=== PATIENT | male | born 1945 | race African-American/Black ===

== ENCOUNTER 2016-09-09 05:08 | Emergency (ER) | payer MEDICARE ==
[2016-09-09] MEDS ORDERED: LIDOCAINE 1% INJ-PF (10 MG/ML) 30 ML SDV INJ ONE (05:28)
--- NOTE | 2016-09-09 05:32 | ER Document Report ---
ED General - General Chief Complaint: Laceration Stated Complaint: FALL,LACERATION Notes: Patient is a 71-year-old male who is walking and then caught his toe awkwardly in the floor. It caused a split in the skin on the medial aspect of his second toe of his left foot. He denies any other pain or injuries. Has a history of difficulty ambulating. says he walks awkwardly in waves where his toes can easily catch become injured. He does use a walker or cane at home. They' re unsure when his last tetanus shot was. Patient refuses a tetanus shot this time. I did explain to him that tetanus is a serious illness and that the tetanus shot prevented. Patient still refuses to shot. No other complaints at this time. Patient's denies falling all the way to ground. He denies hitting his head. Denies any further injuries. TRAVEL OUTSIDE OF THE [place] IN LAST 30 DAYS: No - Related Data Allergies/Adverse Reactions: No Known Allergies Allergy (Verified 09/09/16 05:10) Past Medical History - Social History Smoking Status: Never Smoker Frequency of alcohol use: None Family History: Reviewed & Not Pertinent - Past Medical History Cardiac Medical History: Reports: Hx Hypercholesterolemia, Hx Hypertension Renal/ Medical History: Reports: Hx Renal Insufficiency Musculoskeltal Medical History: Reports Hx Arthritis - Gout Past Surgical History: Reports: Hx Thyroid Surgery - partial per patient - Immunizations Hx Diphtheria, Pertussis, Tetanus Vaccination: Yes Review of Systems - Review of Systems Notes: My Normal Review Basic REVIEW OF SYSTEMS: CONSTITUTIONAL : Denies fever, chills, or sweats. Denies recent illness. MUSCULOSKELETAL: Left second toe pain SKIN: Denies rash or skin lesions. NEUROLOGICAL: Denies altered mental status or loss of consciousness. Denies headache. Denies weakness or paralysis or loss of use of either side. Denies problems with gait or speech. Denies sensory or motor loss. ALL OTHER SYSTEMS REVIEWED AND NEGATIVE. Physical Exam - Vital signs Vitals: Temp Pulse Resp BP Pulse Ox 97.5 F 83 16 133/68 H 100 09/09/16 05:14 09/09/16 05:14 09/09/16 05:14 09/09/16 05:14 09/09/16 05:14 - Notes Notes: General Appearance: Well nourished, alert, cooperative, no acute distress, no obvious discomfort. Well-appearing. Vitals: reviewed, See vital signs table. Extremities: strength 5/5 in all extremities, good pulses in all extremities, no swelling or tenderness in the extremities, no edema. Patient has slight pain to palpation of left foot. No significant pain to palpation. Patient has 2+ pedal edema in both feet which patient's says is chronic and unchanged. Good capillary refill. Skin: Patient has a laceration to the medial aspect of the left second toe. No evidence of tendinous involvement. Patient is able move his toes. Neuro: speech clear, oriented x 3, normal affect, responds appropriately to questions. Patient has some chronic numbness in his feet and toes which is unchanged according to the . He can feel some touch but not much pain. Course - Vital Signs Vital signs: Temp Pulse Resp BP Pulse Ox 97.5 F 83 16 133/68 H 100 09/09/16 05:14 09/09/16 05:14 09/09/16 05:14 09/09/16 05:14 09/09/16 05:14 - Transfer of Care Notes: 09/09/16 06:17 I did obtain x-ray discussed patient has poor sensation in his feet. His no obvious deformity or swelling in the foot night do not suspect a fracture however being that he does not can sensation in want to obtain x-ray to rule out occult fracture. I did review the x-rays myself. I do not see any evidence of fracture. The patient is safe to be discharged home. I encouraged him to return to ER if he has any redness swelling or signs of infection. Encouraged him to return to ER or the doctor in 7 days for removal of cyst sutures. Patient and agree with plan and he will be discharged home. Dictation of this chart was performed using voice recognition software; therefore, there may be some unintended grammatical errors. Procedures - Laceration/Wound Repair left 2nd toe Wound length (cm): 3 Wound's Depth, Shape: Linear Wound explored: Clean Wound Repaired With: Sutures Suture Size/Type: 6:0, Ethilon Number of Sutures: 5 Post-procedure NV exam normal: No - Chronic numbness in toes unchanged from inital exam Complications: No Discharge - Discharge Clinical Impression: Laceration Condition: Good Disposition: HOME, SELF-CARE Additional Instructions: LACERATION CARE: Your laceration has been sutured to keep the skin edges aligned during healing. The time of suture removal depends on the nature and location of your cut. Please follow the care instructions the doctor has outlined for you and return for further care, according to the schedule you've been given. Keep the wound and dressing clean. Unless you were told otherwise, you may shower daily, blotting the wound dry with a clean, unused towel. At other times, If the dressing gets wet or blood soaked, remove it and blot the wound dry, then reapply a new dressing. Unless you were instructed otherwise, dressings should be changed at least daily. If any signs of infection occur (swelling, redness, drainage, increasing tenderness, red streaks, tender lumps in the armpit or groin above the laceration, or fever), see the doctor immediately. SOAP CLEANSING: Gently wash the wound daily using a mild soap (like Ivory, Phisoderm, Neutrogena). Use warm water, rubbing gently until all debris, ooze, and crusting have been washed from the wound. Allow to dry briefly (about 10 minutes) after cleaning. Repeat this cleansing at least three times a day for the first two days and then once or twice a day. ANTIBIOTIC OINTMENT PROTECTION: Your wounds are such that dressing them is not practical or optional. After cleansing, you should apply a thin coating of antibiotic ointment ( Bacitracin, not Neosporin) to the wounds at least three times daily. This lessens infection risk, and may decrease the amount of scarring. Use a q-tip or dull butter knife, not your finger, to apply this ointment. Any debris or ooze which builds up in the ointment should be gently rubbed off with a sterile gauze pad. Harder crusting may need to be gently scrubbed off with a clean wash cloth with soap and warm water, perhaps applying a warm, wet wash cloth to the wound for ten minutes first. Development of redness, severe itching, or blistering may mean allergy to the ointment. See the doctor. PROPHYLACTIC ANTIBIOTIC: The antibiotics which have been prescribed are designed to decrease the risk of infection. Only certain types of wounds benefit from this -- the typical cut, scrape, or burn DOES NOT require antibiotics. Of course, infection can still occur despite the use of prophylactic antibiotics. Your wound will heal with less chance of an infectious complication if you take the medication as directed. The most important dose is the FIRST dose, so don't delay filling the prescription! FOLLOW-UP CARE: Please return in ___7__ days for an infection check and dressing change. To facilitate a timely removal of your sutures, you may return to the Emergency Department at [facility]. You do not need to call for an appointment, but the best time to come in for suture removal is early in the morning. If you have been referred to another physician for follow-up care, call that physicians office for an appointment as you were instructed. If you experience a significant change in your laceration, or if you are concerned there may be an infection (swelling, redness, drainage, increasing tenderness, red streaks, tender lumps in the armpit or groin above the laceration, or fever) , return to the Emergency Department immediately re-evaluation. Please return to the ER immediately if you have any concerns that there may be some infection in the toe. Prescriptions: Cephalexin Monohydrate [Keflex 500 mg Capsule] 500 mg PO BID #14 capsule
[2016-09-09] MEDS ORDERED: CEPHALEXIN 500 MG CAPSULE PO ONE (06:06)
[2016-09-09 06:26] VITALS: BP 120/71
== END 2016-09-09 06:27 | disposition home or self-care (01) ==
LOC: ER 05:08
PROC: 0HQNXZZ Repair Left Foot Skin, External Approach (ICD-10-PCS; principal; 2016-09-09)
DX: S91.115A Laceration without foreign body of left lesser toe(s) without damage to nail, initial encounter (principal); W22.09XA Striking against other stationary object, initial encounter; Y92.009 Unspecified place in unspecified non-institutional (private) residence as the place of occurrence of the external cause; E78.00 Pure hypercholesterolemia, unspecified; I10 Essential (primary) hypertension; M10.9 Gout, unspecified
CPT/HCPCS: 99282; 73620; 12002; A9270; J3490

== ENCOUNTER → 2016-09-12 | Outpatient (CLI) | payer MEDICARE ==
[2016-09-12 14:21] LABS: HEMATOCRIT 38.8 % (37.9-51.0); HEMOGLOBIN 12.7 g/dL (13.5-17.0); HGB HCT DIFFERENCE -0.7; MEAN CORPUSCULAR HGB CONC 32.7 g/dL (32.0-36.0); MEAN CORPUSCULAR VOLUME 86 fl (80-97); RED BLOOD COUNT 4.54 10^6/uL (4.35-5.55); RED CELL DISTRIBUTION WIDTH 14.4 % (11.5-14.0); WHITE BLOOD COUNT 8.6 10^3/uL (4.0-10.5)
[2016-09-12 14:22] LABS: APPEARANCE,URINE CLEAR; BILIRUBIN,URINE NEGATIVE (NEGATIVE); GLUCOSE, URINE NEGATIVE (NEGATIVE); KETONES,URINE NEGATIVE (NEGATIVE); LEUKOCYTE ESTERASE,URINE NEGATIVE (NEGATIVE); NITRITE,URINE NEGATIVE (NEGATIVE); PROTEIN,URINE NEGATIVE (NEGATIVE); URINE SPECIFIC GRAVITY 1.008; UROBILINOGEN,URINE NEGATIVE mg/dL (<2.0)
[2016-09-12 14:40] LABS: ANION GAP 17 (5-19); BLOOD UREA NITROGEN 27 mg/dL (7-20); CALCIUM 9.4 mg/dL (8.4-10.2); CARBON DIOXIDE 18 mmol/L (22-30); CHLORIDE 112 mmol/L (98-107); CREATININE RESULT 2.27 mg/dL (0.52-1.25); GLUCOSE 205 mg/dL (75-110); SODIUM 146.5 mmol/L (137-145)
== END ==
LOC: OD 12:38
PROVIDERS: ATTEND Internal Medicine Nephrology
DX: I12.9 Hypertensive chronic kidney disease with stage 1 through stage 4 chronic kidney disease, or unspecified chronic kidney disease (principal); N18.4 Chronic kidney disease, stage 4 (severe); R31.9 Hematuria, unspecified
CPT/HCPCS: 36415; 80048; 81001; 85027

== ENCOUNTER → 2016-10-07 | Outpatient (CLI) | payer MEDICARE ==
[2016-10-07 14:02] LABS: GLUCOSE,FASTING 90 mg/dL (<110)
== END ==
LOC: OD 12:21
PROVIDERS: ATTEND Internal Medicine Geriatric Medicine
DX: R73.09 Other abnormal glucose (principal)
CPT/HCPCS: 36415; 82951

== ENCOUNTER → 2018-03-31 | Outpatient (CLI) | payer MEDICARE ==
--- NOTE | 2018-03-31 10:05 | RADIOLOGY REPORT (SQ) ---
EXAM DESCRIPTION: U/S ABDOMEN LIMITED W/O DOP COMPLETED DATE/TIME: 03/31/2018 9:36 am REASON FOR STUDY: ABN LFT (R94.5) R94.5 ABNORMAL RESULTS OF LIVER FUNCTION STUDIES COMPARISON: None. TECHNIQUE: Dynamic and static grayscale images acquired of the abdomen and recorded on PACS. Additio nal selected color Doppler and spectral images recorded. LIMITATIONS: Study is limited due to overlying bowel gas FINDINGS: PANCREAS: The pancreas was not well visualized due to overlying bowel gas. The visualized portions of the pancreatic head and body demonstrated no pancreatic mass. No dilatation of the panc reatic duct was identified. LIVER: No masses. Echotexture normal. LIVER VASCULATURE: Normal directional flow of the main portal vein. GALLBLADDER: No stones. Normal wall thickness. No pericholecystic fluid. ULTRASOUND-DETECTED BRODY'S SIGN: Negative. INTRAHEPATIC DUCTS AND COMMON DUCT: CBD and intrahepatic ducts normal caliber. No filling defects. INFERIOR VENA CAVA: Normal flow. AORTA: No aneurysm. RIGHT KIDNEY: 8.3 cm in length. Normal echogenicity. No solid or suspicious masses. No hydronephrosi s. No calcifications. PERITONEAL AND RIGHT PLEURAL SPACE: No ascites or effusions. OTHER: No other significant findings. IMPRESSION: Limited study as noted above. No significant intra-abdominal abnormalities were identif ied TECHNICAL DOCUMENTATION: JOB ID: [id number] [employer]- All Rights Reserved Reading location - IP/workstation name: [email or web address]
== END ==
LOC: RAD 08:32
PROVIDERS: ATTEND Family Medicine
DX: R94.5 Abnormal results of liver function studies (principal)
CPT/HCPCS: 76705

== ENCOUNTER → 2018-05-21 | Outpatient (CLI) | payer MEDICARE ==
[2018-05-21 09:52] LABS: ANION GAP 8 (5-19); BLOOD UREA NITROGEN 27 mg/dL (7-20); CALCIUM 9.1 mg/dL (8.4-10.2); CARBON DIOXIDE 19 mmol/L (22-30); CHLORIDE 118 mmol/L (98-107); GLUCOSE 98 mg/dL (75-110); POTASSIUM 4.5 mmol/L (3.6-5.0); SODIUM 145.3 mmol/L (137-145)
== END ==
LOC: OD 08:59
PROVIDERS: ATTEND Internal Medicine Nephrology
DX: E11.22 Type 2 diabetes mellitus with diabetic chronic kidney disease (principal); N18.4 Chronic kidney disease, stage 4 (severe); E87.1 Hypo-osmolality and hyponatremia; M10.00 Idiopathic gout, unspecified site
CPT/HCPCS: 36415; 80048

== ENCOUNTER → 2018-07-14 | Outpatient (CLI) | payer MEDICARE ==
[2018-07-14 09:58] LABS: APPEARANCE,URINE CLEAR; BILIRUBIN,URINE NEGATIVE (NEGATIVE); COLOR,URINE STRAW; GLUCOSE, URINE NEGATIVE (NEGATIVE); KETONES,URINE NEGATIVE (NEGATIVE); LEUKOCYTE ESTERASE,URINE NEGATIVE (NEGATIVE); NITRITE,URINE NEGATIVE (NEGATIVE); PROTEIN,URINE NEGATIVE (NEGATIVE); URINE SPECIFIC GRAVITY 1.005; UROBILINOGEN,URINE NEGATIVE mg/dL (<2.0)
[2018-07-14 10:03] LABS: HEMATOCRIT 43.2 % (37.9-51.0); HEMOGLOBIN 14.2 g/dL (13.5-17.0); MEAN CORPUSCULAR HGB CONC 32.9 g/dL (32.0-36.0); MEAN CORPUSCULAR VOLUME 88 fl (80-97); PLATELET COUNT 236 10^3/uL (150-450); RED CELL DISTRIBUTION WIDTH 14.1 % (11.5-14.0); WHITE BLOOD COUNT 9.4 10^3/uL (4.0-10.5)
[2018-07-14 10:25] LABS: ANION GAP 14 (5-19); BLOOD UREA NITROGEN 30 mg/dL (7-20); CALCIUM 9.7 mg/dL (8.4-10.2); CARBON DIOXIDE 21 mmol/L (22-30); CHLORIDE 112 mmol/L (98-107); GLUCOSE 95 mg/dL (75-110); POTASSIUM 4.7 mmol/L (3.6-5.0); SODIUM 147.4 mmol/L (137-145)
== END ==
LOC: OD 09:16
PROVIDERS: ATTEND Internal Medicine Nephrology
DX: N18.3 Chronic kidney disease, stage 3 (moderate) (principal); I12.9 Hypertensive chronic kidney disease with stage 1 through stage 4 chronic kidney disease, or unspecified chronic kidney disease; M10.00 Idiopathic gout, unspecified site
CPT/HCPCS: 36415; 80048; 81001; 85027

== ENCOUNTER → 2018-11-12 | Outpatient (CLI) | payer MEDICARE ==
[2018-11-12 08:53] LABS: HEMOGLOBIN 12.8 g/dL (13.5-17.0); MEAN CORPUSCULAR HGB CONC 33.6 g/dL (32.0-36.0); MEAN CORPUSCULAR VOLUME 89 fl (80-97); PLATELET COUNT 238 10^3/uL (150-450); RED BLOOD COUNT 4.25 10^6/uL (4.35-5.55); RED CELL DISTRIBUTION WIDTH 14.3 % (11.5-14.0); WHITE BLOOD COUNT 10.3 10^3/uL (4.0-10.5)
[2018-11-12 08:55] LABS: APPEARANCE,URINE CLEAR; BILIRUBIN,URINE NEGATIVE (NEGATIVE); COLOR,URINE STRAW; GLUCOSE, URINE NEGATIVE (NEGATIVE); KETONES,URINE NEGATIVE (NEGATIVE); LEUKOCYTE ESTERASE,URINE NEGATIVE (NEGATIVE); NITRITE,URINE NEGATIVE (NEGATIVE); PROTEIN,URINE NEGATIVE (NEGATIVE); URINE SPECIFIC GRAVITY 1.004; UROBILINOGEN,URINE NEGATIVE mg/dL (<2.0)
[2018-11-12 09:36] LABS: ANION GAP 12 (5-19); BLOOD UREA NITROGEN 29 mg/dL (7-20); CALCIUM 9.5 mg/dL (8.4-10.2); CARBON DIOXIDE 20 mmol/L (22-30); CHLORIDE 112 mmol/L (98-107); GLUCOSE 122 mg/dL (75-110); PHOSPHORUS 4.2 mg/dL (2.5-4.5); POTASSIUM 4.3 mmol/L (3.6-5.0); SODIUM 144.1 mmol/L (137-145)
== END ==
LOC: OD 08:25
PROVIDERS: ATTEND Internal Medicine Nephrology
DX: I12.9 Hypertensive chronic kidney disease with stage 1 through stage 4 chronic kidney disease, or unspecified chronic kidney disease (principal); N18.3 Chronic kidney disease, stage 3 (moderate)
CPT/HCPCS: 36415; 80048; 81001; 83970; 84100; 85027

== ENCOUNTER → 2019-02-18 | Outpatient (CLI) | payer MEDICARE ==
[2019-02-18 08:04] LABS: HEMATOCRIT 36.1 % (37.9-51.0); HEMOGLOBIN 11.9 g/dL (13.5-17.0); MEAN CORPUSCULAR HEMOGLOBIN 29.1 pg (27.0-33.4); MEAN CORPUSCULAR HGB CONC 33.1 g/dL (32.0-36.0); MEAN CORPUSCULAR VOLUME 88 fl (80-97); PLATELET COUNT 242 10^3/uL (150-450); RED BLOOD COUNT 4.11 10^6/uL (4.35-5.55); RED CELL DISTRIBUTION WIDTH 14.1 % (11.5-14.0); WHITE BLOOD COUNT 9.9 10^3/uL (4.0-10.5)
[2019-02-18 08:06] LABS: APPEARANCE,URINE CLEAR; BILIRUBIN,URINE NEGATIVE (NEGATIVE); COLOR,URINE STRAW; GLUCOSE, URINE NEGATIVE (NEGATIVE); KETONES,URINE NEGATIVE (NEGATIVE); LEUKOCYTE ESTERASE,URINE NEGATIVE (NEGATIVE); NITRITE,URINE NEGATIVE (NEGATIVE); PROTEIN,URINE NEGATIVE (NEGATIVE); URINE SPECIFIC GRAVITY 1.003; UROBILINOGEN,URINE NEGATIVE mg/dL (<2.0)
[2019-02-18 08:30] LABS: ANION GAP 10 (5-19); BLOOD UREA NITROGEN 29 mg/dL (7-20); CALCIUM 9.5 mg/dL (8.4-10.2); CARBON DIOXIDE 22 mmol/L (22-30); CHLORIDE 111 mmol/L (98-107); GLUCOSE 120 mg/dL (75-110); PHOSPHORUS 4.4 mg/dL (2.5-4.5); POTASSIUM 4.5 mmol/L (3.6-5.0); SODIUM 142.7 mmol/L (137-145)
== END ==
LOC: OD 07:33
PROVIDERS: ATTEND Physician Assistant Medical
DX: I12.9 Hypertensive chronic kidney disease with stage 1 through stage 4 chronic kidney disease, or unspecified chronic kidney disease (principal); N18.3 Chronic kidney disease, stage 3 (moderate); E87.0 Hyperosmolality and hypernatremia; E87.2 Acidosis
CPT/HCPCS: 36415; 80048; 81001; 83970; 84100; 85027

== ENCOUNTER → 2019-05-24 | Outpatient (CLI) | payer MEDICARE ==
[2019-05-24 08:23] LABS: APPEARANCE,URINE CLEAR; BILIRUBIN,URINE NEGATIVE (NEGATIVE); COLOR,URINE STRAW; GLUCOSE, URINE >=500 mg/dL (NEGATIVE); KETONES,URINE NEGATIVE (NEGATIVE); LEUKOCYTE ESTERASE,URINE NEGATIVE (NEGATIVE); NITRITE,URINE NEGATIVE (NEGATIVE); PROTEIN,URINE NEGATIVE (NEGATIVE); URINE SPECIFIC GRAVITY 1.005; UROBILINOGEN,URINE NEGATIVE mg/dL (<2.0)
[2019-05-24 08:23] LABS: HEMATOCRIT 37.2 % (37.9-51.0); HEMOGLOBIN 12.4 g/dL (13.5-17.0); MEAN CORPUSCULAR HEMOGLOBIN 28.7 pg (27.0-33.4); MEAN CORPUSCULAR HGB CONC 33.4 g/dL (32.0-36.0); MEAN CORPUSCULAR VOLUME 86 fl (80-97); PLATELET COUNT 201 10^3/uL (150-450); RED BLOOD COUNT 4.33 10^6/uL (4.35-5.55); RED CELL DISTRIBUTION WIDTH 13.6 % (11.5-14.0); WHITE BLOOD COUNT 8.1 10^3/uL (4.0-10.5)
[2019-05-24 08:43] LABS: ANION GAP 12 (5-19); BLOOD UREA NITROGEN 27 mg/dL (7-20); CALCIUM 9.5 mg/dL (8.4-10.2); CARBON DIOXIDE 22 mmol/L (22-30); CHLORIDE 106 mmol/L (98-107); GLUCOSE 338 mg/dL (75-110); PHOSPHORUS 3.7 mg/dL (2.5-4.5); POTASSIUM 4.1 mmol/L (3.6-5.0)
[2019-05-24 08:46] LABS: ABSOLUTE LYMPHOCYTES# (MANUAL) 4.7 10^3/uL (0.5-4.7); ABSOLUTE MONOCYTES # (MANUAL) 0.3 10^3/uL (0.1-1.4); BASOPHILS % (MANUAL) 0 % (0-2); EOSINOPHILS % (MANUAL) 3 % (0-6); LYMPHOCYTES % (MANUAL) 58 % (13-45); MONOCYTES % (MANUAL) 4 % (3-13); SEGMENTED NEUTROPHILS % (MAN) 35 % (42-78); TOTAL CELLS COUNTED 100
[2019-05-24 08:48] LABS: PLATELET COMMENT ADEQUATE; RBC MORPHOLOGY COMMENT NORMO-CYTIC/CHROMIC
== END ==
LOC: OD 07:36
PROVIDERS: ATTEND Physician Assistant Medical
DX: I12.9 Hypertensive chronic kidney disease with stage 1 through stage 4 chronic kidney disease, or unspecified chronic kidney disease (principal); N18.3 Chronic kidney disease, stage 3 (moderate); R60.9 Edema, unspecified; M10.00 Idiopathic gout, unspecified site
CPT/HCPCS: 36415; 80048; 81001; 83970; 84100; 85025

== ENCOUNTER 2019-07-04 00:29 | Inpatient (IN) | payer MEDICARE ==
[2019-07-04 00:52] LABS: HEMATOCRIT 38.3 % (37.9-51.0); HEMOGLOBIN 12.3 g/dL (13.5-17.0); MEAN CORPUSCULAR HEMOGLOBIN 28.7 pg (27.0-33.4); MEAN CORPUSCULAR HGB CONC 32.1 g/dL (32.0-36.0); MEAN CORPUSCULAR VOLUME 90 fl (80-97); PLATELET COUNT 207 10^3/uL (150-450); RED BLOOD COUNT 4.28 10^6/uL (4.35-5.55); RED CELL DISTRIBUTION WIDTH 13.6 % (11.5-14.0); WHITE BLOOD COUNT 11.1 10^3/uL (4.0-10.5)
[2019-07-04 01:08] LABS: ALBUMIN 3.8 g/dL (3.5-5.0); ALKALINE PHOSPHATASE 122 U/L (38-126); ANION GAP 19 (5-19); ASPARTATE AMINO TRANSFERASE 62 U/L (17-59); BILIRUBIN,DIRECT 0.1 mg/dL (0.0-0.4); BILIRUBIN,TOTAL 0.3 mg/dL (0.2-1.3); BLOOD UREA NITROGEN 24 mg/dL (7-20); CALCIUM 8.8 mg/dL (8.4-10.2); CARBON DIOXIDE 17 mmol/L (22-30); CHLORIDE 104 mmol/L (98-107); POTASSIUM 4.1 mmol/L (3.6-5.0); TOTAL PROTEIN 7.4 g/dL (6.3-8.2)
[2019-07-04 01:14] LABS: ABSOLUTE MONOCYTES # (MANUAL) 0.2 10^3/uL (0.1-1.4); BAND NEUTROPHILS % (MANUAL) 4 % (3-5); BASOPHILS % (MANUAL) 0 % (0-2); EOSINOPHILS % (MANUAL) 2 % (0-6); LYMPHOCYTES % (MANUAL) 54 % (13-45); MONOCYTES % (MANUAL) 2 % (3-13); SEGMENTED NEUTROPHILS % (MAN) 38 % (42-78); TOTAL CELLS COUNTED 100
[2019-07-04 01:15] LABS: PLATELET COMMENT ADEQUATE
--- NOTE | 2019-07-04 01:15 | ER Document Report ---
ED General - General Chief Complaint: Altered Mental Status Stated Complaint: POSSIBLE SEIZURE Time Seen by Provider: 07/04/19 01:10 EDT Notes: Mr. Kumar is a 73-year-old male with PMH of hyperlipidemia, gout, hypothyroidism and CKD BIBA for seizure. Patient's states that he drinks approximately 2 gallons of water daily and is therefore chronically urinating. They have a bedside commode in the room. Throughout the day yesterday, the patient was noted to have right hand and arm tremor. However during these episodes, the patient was awake alert and able to converse. This evening, the patient attempted to get up out of bed to urinate. He started by having the right hand tremor was then able to steady his balance or hold onto the bed or dresser, then the tremor seemed to progress throughout his entire body. The states he then fell to the ground and was unconscious for a brief period of time. She is unsure whether the urinary incontinence occurred prior to the patient losing consciousness and having generalized tonic-clonic like movements or after as he had gotten up to use the restroom. No tongue laceration. Upon EMS arrival, the patient's glucose was noted to be significantly elevated greater than 500. He was noted to have another secondary seizure in route. EMS gave 2.5 mg of Versed. On arrival, the patient was quite lethargic, likely related to Versed administration. Nursing staff stated that the patient's speech was quite slurred and was unable to partake in most of the NIH stroke scale. endorses patient having a chronic nonproductive cough. No previous fever or chills, ill contacts or recent travel. No nausea, vomiting or diarrhea. adds that the patient is normally alert and oriented x4. TRAVEL OUTSIDE OF THE [place] IN LAST 30 DAYS: No - Related Data Allergies/Adverse Reactions: No Known Allergies Allergy (Verified 09/09/16 05:10) Past Medical History - Social History Smoking Status: Former Smoker Family History: Reviewed & Not Pertinent Patient has suicidal ideation: No Patient has homicidal ideation: No - Past Medical History Cardiac Medical History: Reports: Hx Hypercholesterolemia, Hx Hypertension Renal/ Medical History: Reports: Hx Renal Insufficiency Musculoskeletal Medical History: Reports Hx Arthritis - Gout Past Surgical History: Reports: Hx Thyroid Surgery - partial per patient - Immunizations Hx Diphtheria, Pertussis, Tetanus Vaccination: Yes Review of Systems - Review of Systems Constitutional: See HPI EENT: No symptoms reported Cardiovascular: No symptoms reported Respiratory: See HPI Gastrointestinal: No symptoms reported Genitourinary: No symptoms reported Male Genitourinary: No symptoms reported Musculoskeletal: No symptoms reported Skin: No symptoms reported Hematologic/Lymphatic: No symptoms reported Neurological/Psychological: See HPI, Seizure, Speech impairment, Tremor Physical Exam - Vital signs Vitals: Temp Resp Pulse Ox 98.2 F 28 H 96 07/04/19 00:37 07/04/19 00:37 07/04/19 00:37 Interpretation: Normal - General General appearance: Appears well, Alert - HEENT Head: Normocephalic, Atraumatic Eyes: Normal Pupils: PERRL Mouth/Lips: Normal. No: Laceration - Respiratory Respiratory status: No respiratory distress Chest status: Nontender Breath sounds: Normal Chest palpation: Normal - Cardiovascular Rhythm: Regular Heart sounds: Normal auscultation Murmur: No - Abdominal Inspection: Normal Distension: No distension Bowel sounds: Normal Tenderness: Nontender Organomegaly: No organomegaly - Back Back: Normal, Nontender - Extremities General upper extremity: Normal inspection, Nontender, Normal color, Normal ROM, Normal temperature General lower extremity: Normal inspection, Nontender, Normal color, Normal ROM, Normal temperature, Normal weight bearing. No: Aleksandra's sign - Neurological Neuro grossly intact: Yes Cognition: Normal, Short term memory loss Orientation: Disoriented to time, Disoriented to events - Patient oriented to person and place. Unable to tell me the month, year or who the studio operations engineer in charge is. Kianna Coma Scale Eye Opening: Spontaneous [place] Coma Scale Verbal: Oriented Kianna Coma Scale Motor: Obeys Commands Kianna Coma Scale Total: 15 Speech: Normal Cranial nerves: Normal Cerebellar coordination: Other - Limited exam secondary to patient's chronic weakness. 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 NIH is 1 at this point in time. Some decrease in ability to lift bilateral lower extremities however likely related to chronic deconditioning more so rather than weakness as the patient is able to lift each leg off the bed. - Psychological Associated symptoms: Normal affect, Normal mood - Skin Skin Temperature: Warm Skin Moisture: Dry Skin Color: Normal Course - Re-evaluation Re-evalutation: Patient is chronically ill-appearing but nontoxic. Initial vitals notable for tachypnea and tachycardia. On arrival, the patient was slightly confused upon the nursing evaluation, likely secondary to the Versed administration. Differential diagnosis includes intracranial hemorrhage, new onset seizures, infectious process, new onset diabetes, dehydration Given the patient's initial glucose, patient was given 2 L of IV fluids. However the patient's status has improved significantly, nearly back to baseline with some alterations in his inability to articulate time, month or the [place]. However he is able to follow commands and perform the remainder of the NIH stroke scale. CT head is negative for intracranial hemorrhage. There is microvascular changes. CBC notable for leukocytosis without significant left shift. CMP is consistent with patient's known CKD however there is significant hyper glycemia with glucose greater than 600. Patient was given 2 L of fluid. Initial lactic acid is significantly elevated, this could be consistent with the patient having had a recent seizure. It is unclear whether the urination episode occurred prior or after the patient fell to the ground having generalized tonic-clonic motions. No tongue lacerations however on the examination. Patient admitted for further care. Will likely require inpatient MRI as well as close monitoring of his glucose. Likely initiation of anti-glycemic medication such as metformin or insulin. 07/04/19 01:[address] Mathews for admission. Accepted as inpatient to [facility] 07/04/19 01:18 EST Pt is a patient of Dr. Bar. Tax Adjuster called. Dr. Ofe degroot. Accepted patient to [facility]. I do feel that the patient is stable for the [facility] as he has been hemodynamically stable vitals with improved after 2 L of fluid as well as Accu-Chek. Patient's mentation is also improved significantly. - Vital Signs Vital signs: Temp Pulse Resp BP Pulse Ox 97.8 F 118 H 18 125/75 99 07/04/19 00:45 07/04/19 00:50 07/04/19 02:01 07/04/19 02:01 07/04/19 02:01 - Laboratory Result Diagrams: 07/04/19 00:37 07/04/19 00:37 Laboratory results interpreted by me: 07/04/19 07/04/19 07/04/19 00:37 00:37 00:37 WBC 11.1 H RBC 4.28 L Hgb 12.3 L Seg Neuts % (Manual) 38 L Lymphocytes % (Manual) 54 H Monocytes % (Manual) 2 L Abs Lymphs (Manual) 6.0 H Carbon Dioxide 17 L BUN 24 H Creatinine 2.83 H Est GFR ( Amer) 27 L Est GFR (MDRD) Non-Af 22 L Glucose 618 H* Lactic Acid 8.8 H AST 62 H Creatine Kinase 07/04/19 00:37 WBC RBC Hgb Seg Neuts % (Manual) Lymphocytes % (Manual) Monocytes % (Manual) Abs Lymphs (Manual) Carbon Dioxide BUN Creatinine Est GFR ( Amer) Est GFR (MDRD) Non-Af Glucose Lactic Acid AST Creatine Kinase 268 H Critical Care Note - Critical Care Note Total time excluding time spent on procedures (mins): 40 Discharge - Discharge Clinical Impression: Tremor of right hand, Seizure-like activity, New onset type 2 diabetes mellitus, Lactic acidosis, CKD (chronic kidney disease) Condition: Fair Disposition: ADMITTED INPATIENT Admitting Provider: Bar Unit Admitted: [facility]
[2019-07-04 01:19] LABS: VENOUS BLOOD BASE EXCESS -3.4 mmol/L; VENOUS BLOOD HCO3 22.7 mmol/L (20-32); VENOUS BLOOD PCO2 44.8 mmHg (35-63); VENOUS BLOOD PH 7.32 (7.30-7.42)
[2019-07-04 01:21] LABS: APPEARANCE,URINE CLEAR; BILIRUBIN,URINE NEGATIVE (NEGATIVE); COLOR,URINE STRAW; GLUCOSE, URINE >=500 mg/dL (NEGATIVE); KETONES,URINE NEGATIVE (NEGATIVE); LEUKOCYTE ESTERASE,URINE NEGATIVE (NEGATIVE); NITRITE,URINE NEGATIVE (NEGATIVE); PROTEIN,URINE NEGATIVE (NEGATIVE); URINE SPECIFIC GRAVITY 1.009; UROBILINOGEN,URINE NEGATIVE mg/dL (<2.0)
[2019-07-04 01:23] LABS: ADD MANUAL MICROSCOPIC YES
[2019-07-04 01:24] LABS: BACTERIA,URINE TRACE /HPF
[2019-07-04 01:30] LABS: URINE AMPHETAMINES SCREEN NEGATIVE; URINE BARBITURATES SCREEN NEGATIVE; URINE BENZODIAZEPINES SCREEN NEGATIVE; URINE COCAINE SCREEN NEGATIVE; URINE MARIJUANA (THC) SCREEN NEGATIVE; URINE METHADONE SCREEN NEGATIVE; URINE PHENCYCLIDINE SCREEN NEGATIVE
[2019-07-04] MEDS ORDERED: NORMAL SALINE 1000 ML 1,000 ML IV ONE (01:37)
--- NOTE | 2019-07-04 01:39 | RADIOLOGY REPORT (SQ) ---
EXAM: CT head without IV contrast CLINICAL DATA: new onset seizure; altered TECHNICAL DATA: Multiple axial CT images of the brain were performed followed by sagittal and coronal reconstructed images. The CT study is performed according to ALARA (as low as reasonably achievable) or ALARA/IMAGE GENTLY, with automatic adjustment of mA and/or kV according to patient size. Performed on: 07/04/2019 at 12:53 AM Comparisons: None. FINDINGS: There is no evidence of mass, acute mass effect or midline shift. There are no acute extra-axial fluid collections. There is no evidence of acute intracranial hemorrhage. The cerebral sulci and ventricles are prominent consistent with mild cerebral volume loss. There are scattered areas of decreased attenuation within the subcortical and periventricular white matter most likely due to mild chronic microangiopathy. There are incidental bilateral symmetric basal ganglia calcifications. There is mild mucosal thickening of the right sphenoid sinus. The mastoid air cells are clear. The orbital contents are grossly unremarkable. No acute osseous abnormalities are identified. No focal soft tissue abnormalities are identified. IMPRESSION: 1. There is no evidence of acute intracranial pathology. 2. Mild cerebral volume loss with findings consistent with mild chronic microangiopathy.
[2019-07-04 01:40] LABS: GLUCOSE 618 mg/dL (75-110)
[2019-07-04] MEDS ORDERED: NORMAL SALINE 1000 ML 2,000 ML IV ONE (02:28)
--- NOTE | 2019-07-04 02:37 | RADIOLOGY REPORT (SQ) ---
EXAM DESCRIPTION: XR CHEST 1 VIEW COMPLETED DATE/TME: 07/04/2019 01:39 CLINICAL HISTORY: 73 years, Male, seizure, crackles at L base COMPARISON: 08/18/2015 chest NUMBER OF VIEWS: 1 TECHNIQUE: Portable chest LIMITATIONS: None. FINDINGS: The heart size is normal. The lungs are clear. No pneumothorax IMPRESSION: Negative chest copyright 2010 [employer]- All Rights Reserved
[2019-07-04] MEDS ORDERED: INSULIN LISPRO 100 UNIT/ML 3 ML VIAL ONE (04:08)
[2019-07-04] MEDS ORDERED: LORAZEPAM INJ 2 MG/1 ML VIAL IV PRN (04:31)
[2019-07-04] MEDS ORDERED: INSULIN LISPRO 100 UNIT/ML 3 ML VIAL SUBCUT ONE ×2 (04:45→05:45)
[2019-07-04] MEDS ORDERED: INSULIN REG, HUMAN 100 UNIT/ML 3 ML VIAL (PYX) ONE ×2 (06:53→20:50)
[2019-07-04] MEDS ORDERED: DEXTROSE 40% GEL 15 GM TUBE X 2 PO PRN (07:00)
[2019-07-04] MEDS ORDERED: DEXTROSE 40% GEL 15 GM TUBE PO PRN (07:00)
[2019-07-04] MEDS ORDERED: INSULIN, REGULAR 100 UNIT/100 ML NORMAL SALINE IV PRN ×2 (07:00)
[2019-07-04] MEDS ORDERED: GLUCAGON,HUMAN RECOMB 1 MG INJ IM PRN (07:00)
[2019-07-04] MEDS ORDERED: DEXTROSE 50%-WATER SYRINGE 12.5 GM/25 ML DOSE IV PRN (07:00)
[2019-07-04] MEDS ORDERED: DEXTROSE 50%-WATER SYRINGE 25 GM/50 ML DOSE IV PRN (07:00)
[2019-07-04] MEDS: NORMAL SALINE 1000 ML 1,000 ML IV PRN ×2 (11:06→18:57)
[2019-07-04 11:47] LABS: ANION GAP 9 (5-19); BLOOD UREA NITROGEN 20 mg/dL (7-20); CALCIUM 8.3 mg/dL (8.4-10.2); CARBON DIOXIDE 19 mmol/L (22-30); CHLORIDE 118 mmol/L (98-107); GLUCOSE 333 mg/dL (75-110)
[2019-07-04] MEDS ORDERED: OLANZAPINE 5 MG TABLET PO SCH (18:00)
[2019-07-04] MEDS: SODIUM BICARBONATE 650 MG TABLET PO SCH (18:42)
[2019-07-04] MEDS: ATORVASTATIN CALCIUM 20 MG TABLET PO SCH (21:08)
--- NOTE | 2019-07-04 21:32 | PDOC H&P ---
History of Present Illness Admission Date/PCP: 07/04/19 01:40 HIRAM GOMEZ MD History of Present Illness: SHAWN FORD JR is a 73 year old male patient of Dr. Gomez who presented to the ED via EMS transport for reported elevated blood glucose and episode of seizure like activity at home. Patient is a poor historian and limited in participating in his medical history at the time of my evaluation. His at bedside narrated that patient has intermittent episodes of tremor in his right hand and upper limb that occasionally limit his functioning. Spouse reported that on the day of presentation, patient was in the process of transferring from his bed to bedside commode and started experiencing tremor over right side of his body. The tremor subsequently became generalized and patient lost his balance fell to the floor and lost consciousness for brief period of time. Spouse alerted EMS and the EMS personnel found his blood glucose in excess of 500 mg/dL. En route to the ED EMS reported another episode of seizure like activity with need for administration of Versed. There is no reported associated injury with his seizure like activities. Upon arrival in the ED patient was reported lethargic probable due to the Versed administration. Spouse reported that patient in recent time has been drinking lots of water and urinating frequently. She and patient denied any history or diagnosis of diabetes mellitus in self or family members. He denied any associated fever, chills, nausea, vomiting, abdominal pain, diarrhea, or constipation. No dysuria, hematuria, or flank pain. No headache or dizziness. No focal weakness or change in mental function in recent time. His initial evaluation in the ED was remarkable for severe lactic acidosis, hyperglycemia, and chronic kidney disease. He was advised hospitalization for further evaluation and management. His morbidities are as listed below. Past Medical History Cardiac Medical History: Reports: Hyperlipidema, Hypertension Musculoskeltal Medical History: Reports: Arthritis - Gout Psychiatric Medical History: Reports: Depression Social History Smoking Status: Former Smoker Electronic Cigarette use?: No Last Time Smoked: 38 years ago Frequency of Alcohol Use: None Hx Recreational Drug Use: No Drugs: None Hx Prescription Drug Abuse: No - Advance Directive Resuscitation Status: Full Code Family History Family History: Reviewed & Not Pertinent Parental Family History Reviewed: Yes Children Family History Reviewed: Yes Sibling(s) Family History Reviewed.: Yes Medication/Allergy Home Medications: Allopurinol [Zyloprim 100 mg Tablet] 200 mg PO QAM 07/04/19 Aspirin [Adult Low Dose Aspirin EC] 81 mg PO DAILY 07/04/19 Atorvastatin Calcium [Lipitor 20 mg Tablet] 20 mg PO QHS 07/04/19 Furosemide [Lasix 20 mg Tablet] 20 mg PO QAM 07/04/19 Levothyroxine Sodium 50 mcg PO Q6AM 07/04/19 Olanzapine [Zyprexa 5 mg Tablet] 2.5 mg PO QPM 07/04/19 Sodium Bicarbonate [Sodium Bicarbonate 650 mg Tablet] 1,950 mg PO BID 07/04/19 Allergies/Adverse Reactions: No Known Allergies Allergy (Verified 09/09/16 05:10) Review of Systems Constitutional: ABSENT: chills, fever(s), headache(s), weight gain, weight loss Eyes: ABSENT: visual disturbances Ears: ABSENT: hearing changes Nose, Mouth, and Throat: ABSENT: as per HPI, headache(s), mouth pain, sore throat, vertigo, other Cardiovascular: ABSENT: chest pain, dyspnea on exertion, edema, orthropnea, palpitations Respiratory: ABSENT: cough, hemoptysis Gastrointestinal: ABSENT: abdominal pain, constipation, diarrhea, hematemesis, hematochezia, nausea, vomiting Genitourinary: ABSENT: dysuria, hematuria Musculoskeletal: ABSENT: joint swelling Integumentary: ABSENT: rash, wounds Neurological: PRESENT: confusion, tremor(s) Psychiatric: ABSENT: anxiety, depression, homidical ideation, suicidal ideation Endocrine: ABSENT: cold intolerance, heat intolerance, polydipsia, polyuria Hematologic/Lymphatic: ABSENT: easy bleeding, easy bruising, lymphadenopathy Allergic/Immunologic: ABSENT: seasonal rhinorrhea Physical Exam Vital Signs: Temp Pulse Resp BP Pulse Ox 97.7 F 77 16 118/75 99 07/04/19 17:27 07/04/19 17:27 07/04/19 17:27 07/04/19 17:27 07/04/19 17:27 Intake & Output 07/03/19 07/04/19 07/05/19 07:59 06:59 06:59 Intake Total 489 Output Total 600 Balance -111 Weight General appearance: PRESENT: no acute distress, obese Head exam: PRESENT: atraumatic, normocephalic Eye exam: PRESENT: conjunctiva pink, EOMI, PERRLA. ABSENT: scleral icterus Ear exam: PRESENT: normal external ear exam Mouth exam: PRESENT: moist Neck exam: PRESENT: full ROM. ABSENT: carotid bruit, JVD, lymphadenopathy, thyromegaly Respiratory exam: PRESENT: clear to auscultation haroldo Cardiovascular exam: PRESENT: RRR. ABSENT: diastolic murmur, rubs, systolic murmur Vascular exam: ABSENT: pallor GI/Abdominal exam: PRESENT: normal bowel sounds, soft. ABSENT: distended, guarding, mass, organolmegaly, rebound, tenderness Rectal exam: PRESENT: deferred Extremities exam: ABSENT: pedal edema Musculoskeletal exam: PRESENT: normal inspection Neurological exam: PRESENT: alert, awake, oriented to person, oriented to place, oriented to time, oriented to situation, CN II-XII grossly intact. ABSENT: motor sensory deficit Psychiatric exam: PRESENT: appropriate affect, normal mood. ABSENT: homicidal i deation, suicidal ideation Skin exam: PRESENT: dry, warm Results Laboratory Results: 07/04/19 00:37 07/04/19 11:18 07/04/19 07/04/19 07/04/19 00:37 00:37 00:37 WBC 11.1 H RBC 4.28 L Hgb 12.3 L Hct 38.3 MCV 90 MCH 28.7 MCHC 32.1 RDW 13.6 Plt Count 207 Seg Neutrophils % Not Reportable Sodium 140.3 Potassium 4.1 Chloride 104 Carbon Dioxide 17 L Anion Gap 19 BUN 24 H Creatinine 2.83 H Est GFR ( Amer) 27 L Glucose 618 H* Lactic Acid 8.8 H Calcium 8.8 Total Bilirubin 0.3 AST 62 H Alkaline Phosphatase 122 Total Protein 7.4 Albumin 3.8 Urine Color Urine Appearance Urine pH Ur Specific Elliott Urine Protein Urine Glucose (UA) Urine Ketones Urine Blood Urine Nitrite Ur Leukocyte Esterase Ur Squamous Epith Cells 07/04/19 07/04/19 07/04/19 01:45 EST 02:35 11:18 WBC RBC Hgb Hct MCV MCH MCHC RDW Plt Count Seg Neutrophils % Sodium 146.0 H Potassium 4.0 Chloride 118 H Carbon Dioxide 19 L Anion Gap 9 BUN 20 Creatinine 2.51 H Est GFR ( Amer) 31 L Glucose 333 H Lactic Acid 2.1 Calcium 8.3 L Total Bilirubin AST Alkaline Phosphatase Total Protein Albumin Urine Color STRAW Urine Appearance CLEAR Urine pH 7.0 Ur Specific Elliott 1.009 Urine Protein NEGATIVE Urine Glucose (UA) >=500 H Urine Ketones NEGATIVE Urine Blood MODERATE H Urine Nitrite NEGATIVE Ur Leukocyte Esterase NEGATIVE Ur Squamous Epith Cells RARE 07/04/19 00:37 Creatine Kinase 268 H Impressions: Head CT 07/04/19 00:00 IMPRESSION: 1. There is no evidence of acute intracranial pathology. 2. Mild cerebral volume loss with findings consistent with mild chronic microangiopathy. Chest X-Ray 07/04/19 01:39 EST IMPRESSION: Negative chest copyright 2010 [employer]- All Rights Reserved Assessment & Plan - Diagnosis (1) New onset type 2 diabetes mellitus Is this a current diagnosis for this admission?: Yes Plan: See covering admitting attending physician orders for details about care plan. (2) Lactic acidosis Is this a current diagnosis for this admission?: Yes Plan: See covering admitting attending physician orders for details about care plan. (3) Seizure-like activity Is this a current diagnosis for this admission?: Yes Plan: See covering admitting attending physician orders for details about care plan. (4) Tremor of right hand Is this a current diagnosis for this admission?: Yes Plan: See covering admitting attending physician orders for details about care plan. (5) CKD (chronic kidney disease) Qualifiers: Chronic kidney disease stage: stage 3 (moderate) Qualified Code(s): N18.3 - Chronic kidney disease, stage 3 (moderate) Is this a current diagnosis for this admission?: Yes Plan: See covering admitting attending physician orders for details about care plan. (6) HTN (hypertension) Qualifiers: Hypertension type: essential hypertension Qualified Code(s): I10 - Essential (primary) hypertension Is this a current diagnosis for this admission?: Yes Plan: See covering admitting attending physician orders for details about care plan. (7) HLD (hyperlipidemia) Qualifiers: Hyperlipidemia type: unspecified Qualified Code(s): E78.5 - Hyperlipidemia, unspecified Is this a current diagnosis for this admission?: Yes Plan: See covering admitting attending physician orders for details about care plan. (8) Hypothyroidism Qualifiers: Hypothyroidism type: unspecified Qualified Code(s): E03.9 - Hypothyroidism, unspecified Is this a current diagnosis for this admission?: Yes Plan: See covering admitting attending physician orders for details about care plan. (9) Chronic gouty arthritis Is this a current diagnosis for this admission?: Yes Plan: See covering admitting attending physician orders for details about care plan. - Time Time Spent: 50 to 70 Minutes Medications reviewed and adjusted accordingly: Yes Anticipated discharge: Home with Homehealth Within: Other - Inpatient Certification Based on my medical assessment, after consideration of the patient's comorbidities, presenting symptoms, or acuity I expect that the services needed warrant INPATIENT care.: Yes I certify that my determination is in accordance with my understanding of Medicare's requirements for reasonable and necessary INPATIENT services [42 CFR 412.3e].: Yes Medical Necessity: Significant Comorbidiites Make Outpatient Treatment Too Risky, Need Close Monitoring Due to Risk of Patient Decompensation, Need For IV Fluids, Need For Continuous Telemetry Monitoring, Risk of Complication if Not Cared For in Hospital, Risk of Diagnosis Which Will Require Inpatient Eval/Care/Monitoring Post Hospital Care: D/C Weed Cutter Documentation - Plan Summary Plan Summary: See covering admitting attending physician orders for details about care plan.
[2019-07-05] MEDS: NORMAL SALINE 1000 ML 1,000 ML IV PRN ×2 (02:31→15:47)
[2019-07-05] MEDS ORDERED: DEXTROSE 50%-WATER SYRINGE 25 GM/50 ML DOSE IV PRN (03:30)
[2019-07-05] MEDS ORDERED: DEXTROSE 50%-WATER SYRINGE 12.5 GM/25 ML DOSE IV PRN (03:30)
[2019-07-05] MEDS ORDERED: DEXTROSE 40% GEL 15 GM TUBE PO PRN (03:30)
[2019-07-05] MEDS ORDERED: GLUCAGON,HUMAN RECOMB 1 MG INJ IM PRN (03:30)
[2019-07-05] MEDS ORDERED: DEXTROSE 40% GEL 15 GM TUBE X 2 PO PRN (03:30)
[2019-07-05 04:57] LABS: ALKALINE PHOSPHATASE 95 U/L (38-126); ANION GAP 9 (5-19); ASPARTATE AMINO TRANSFERASE 52 U/L (17-59); BILIRUBIN,DIRECT 0.2 mg/dL (0.0-0.4); BILIRUBIN,TOTAL 0.5 mg/dL (0.2-1.3); BLOOD UREA NITROGEN 16 mg/dL (7-20); CALCIUM 8.4 mg/dL (8.4-10.2); CARBON DIOXIDE 19 mmol/L (22-30); CHLORIDE 121 mmol/L (98-107); GLUCOSE 161 mg/dL (75-110); POTASSIUM 3.6 mmol/L (3.6-5.0); TOTAL PROTEIN 6.5 g/dL (6.3-8.2)
[2019-07-05 05:12] LABS: HEMATOCRIT 33.9 % (37.9-51.0); HEMOGLOBIN 11.1 g/dL (13.5-17.0); MEAN CORPUSCULAR HEMOGLOBIN 28.6 pg (27.0-33.4); MEAN CORPUSCULAR HGB CONC 32.8 g/dL (32.0-36.0); MEAN CORPUSCULAR VOLUME 87 fl (80-97); PLATELET COUNT 185 10^3/uL (150-450); RED BLOOD COUNT 3.88 10^6/uL (4.35-5.55); RED CELL DISTRIBUTION WIDTH 13.7 % (11.5-14.0); WHITE BLOOD COUNT 8.6 10^3/uL (4.0-10.5)
[2019-07-05] MEDS: LEVOTHYROXINE SODIUM 0.05 MG TABLET PO SCH (05:38)
[2019-07-05 06:07] LABS: ABSOLUTE LYMPHOCYTES# (MANUAL) 5.3 10^3/uL (0.5-4.7); ABSOLUTE MONOCYTES # (MANUAL) 0.1 10^3/uL (0.1-1.4); BASOPHILS % (MANUAL) 0 % (0-2); EOSINOPHILS % (MANUAL) 2 % (0-6); LYMPHOCYTES % (MANUAL) 62 % (13-45); MONOCYTES % (MANUAL) 1 % (3-13); PLATELET CLUMPS PRESENT; PLATELET COMMENT ADEQUATE; RBC MORPHOLOGY COMMENT NORMO-CYTIC/CHROMIC; SEGMENTED NEUTROPHILS % (MAN) 35 % (42-78); TOTAL CELLS COUNTED 100
[2019-07-05] MEDS: ALLOPURINOL 100 MG TABLET PO SCH (08:19)
[2019-07-05] MEDS: INSULIN REG, HUMAN 100 UNIT/ML 3 ML VIAL (PYX) SUBCUT SCH ×4 (08:19→21:17)
--- NOTE | 2019-07-05 09:43 | PDOC PROGRESS REPORT ---
Subjective Progress Note for:: 07/05/19 Subjective:: Patient is currently doing well Patient's newly diagnosed with A1c is more than 14 She is denied any chest pain to than any shortness of the breath No seizures activities I do not think the patient have any seizures due to the hyperglycemia Patient also see her Dr. Noble for chronic kidney disease currently on IV fluid and hold the Lasix Reason For Visit: NEW ONSET DIABETES MELLITUS TYPE 2,LACTIC ACIDOSIS Physical Exam Vital Signs: Temp Pulse Resp BP Pulse Ox 97.6 F 76 18 111/72 96 07/05/19 04:50 07/05/19 07:00 07/05/19 04:50 07/05/19 04:50 07/05/19 04:50 Intake & Output 07/04/19 07/05/19 07/06/19 06:59 06:59 06:59 Intake Total 4825 748 Output Total 4555 Balance 270 748 Weight 109.1 kg General appearance: PRESENT: no acute distress, well-developed, well-nourished Head exam: PRESENT: atraumatic, normocephalic Eye exam: PRESENT: conjunctiva pink, EOMI, PERRLA. ABSENT: scleral icterus Ear exam: PRESENT: normal external ear exam Mouth exam: PRESENT: moist, tongue midline Neck exam: PRESENT: full ROM. ABSENT: carotid bruit, JVD, lymphadenopathy, thyromegaly Respiratory exam: PRESENT: clear to auscultation haroldo Cardiovascular exam: PRESENT: RRR. ABSENT: diastolic murmur, rubs, systolic murmur Pulses: PRESENT: normal dorsalis pedis pul, +2 pedal pulses bilateral Vascular exam: PRESENT: normal capillary refill GI/Abdominal exam: PRESENT: normal bowel sounds, soft. ABSENT: distended, guarding, mass, organolmegaly, rebound, tenderness Rectal exam: PRESENT: deferred Neurological exam: PRESENT: alert, awake, oriented to person, oriented to place, oriented to time, oriented to situation, CN II-XII grossly intact. ABSENT: motor sensory deficit Psychiatric exam: PRESENT: appropriate affect, normal mood. ABSENT: homicidal ideation, suicidal ideation Skin exam: PRESENT: dry, intact, warm. ABSENT: cyanosis, rash Results Laboratory Results: 07/05/19 04:27 07/05/19 04:27 07/04/19 07/05/19 07/05/19 11:18 04:27 04:27 WBC 8.6 RBC 3.88 L Hgb 11.1 L Hct 33.9 L MCV 87 MCH 28.6 MCHC 32.8 RDW 13.7 Plt Count 185 Seg Neutrophils % Not Reportable Sodium 146.0 H 148.7 H Potassium 4.0 3.6 Chloride 118 H 121 H Carbon Dioxide 19 L 19 L Anion Gap 9 9 BUN 20 16 Creatinine 2.51 H 2.50 H Est GFR ( Amer) 31 L 31 L Glucose 333 H 161 H Lactic Acid Calcium 8.3 L 8.4 Total Bilirubin 0.5 AST 52 Alkaline Phosphatase 95 Total Protein 6.5 Albumin 3.0 L 07/05/19 04:27 WBC RBC Hgb Hct MCV MCH MCHC RDW Plt Count Seg Neutrophils % Sodium Potassium Chloride Carbon Dioxide Anion Gap BUN Creatinine Est GFR ( Amer) Glucose Lactic Acid 1.2 Calcium Total Bilirubin AST Alkaline Phosphatase Total Protein Albumin 07/04/19 00:37 Creatine Kinase 268 H Impressions: Head CT 07/04/19 00:00 IMPRESSION: 1. There is no evidence of acute intracranial pathology. 2. Mild cerebral volume loss with findings consistent with mild chronic microangiopathy. Chest X-Ray 07/04/19 01:39 EST IMPRESSION: Negative chest copyright 2011 [employer]- All Rights Reserved Assessment & Plan - Diagnosis (1) New onset type 2 diabetes mellitus Is this a current diagnosis for this admission?: Yes Plan: Start the patient on the Lantus 10 units at nights continues to sliding scale's per the patient on Starlix twice a day (2) CKD (chronic kidney disease) Qualifiers: Chronic kidney disease stage: stage 3 (moderate) Qualified Code(s): N18.3 - Chronic kidney disease, stage 3 (moderate) Is this a current diagnosis for this admission?: Yes Plan: Consult to Dr. Noble with the acute on chronic kidney failure continues to IV fluid hold the Lasix (3) Hypothyroidism Qualifiers: Hypothyroidism type: unspecified Qualified Code(s): E03.9 - Hypothyroidism, unspecified Is this a current diagnosis for this admission?: Yes (4) Lactic acidosis Is this a current diagnosis for this admission?: Yes Plan: Due to the diabetic ketoacidosis currently all resolved (5) Seizure-like activity Is this a current diagnosis for this admission?: Yes Plan: I do not think so is a seizures like activity due to the mostly hyperglycemia we will get the MRI of the head (6) Tremor of right hand Is this a current diagnosis for this admission?: Yes - Time Time Spent with patient: 15-24 minutes Level of Care: IMCU Medications reviewed and adjusted accordingly: Yes Anticipated discharge: Home with Homehealth Within: Other - Plan Summary Plan Summary: Discussed with the patient and the family on the bedside discussed with nursing staff
[2019-07-05] MEDS: SODIUM BICARBONATE 650 MG TABLET PO SCH ×2 (10:03→17:37)
[2019-07-05] MEDS: NATEGLINIDE 60 MG TABLET PO SCH ×2 (10:03→17:37)
[2019-07-05] MEDS: ASPIRIN 81 MG TABLET, ENT COATED PO SCH (10:03)
--- NOTE | 2019-07-05 10:59 | RADIOLOGY REPORT (SQ) ---
EXAM DESCRIPTION: MRI HEAD WITHOUT COMPLETED DATE/TIME: 07/05/2019 9:57 am REASON FOR STUDY: ams/seziure COMPARISON: None. TECHNIQUE: Multiplanar imaging includes non-contrasted T1, T2, FLAIR, and diffusion with ADC map seq uences. Images stored on PACS. LIMITATIONS: Motion. FINDINGS: ANATOMY: No anomalies. Normal vascular flow voids. Pituitary fossa normal. CSF SPACES: Atrophy induced prominence of ventricles and CSF spaces. CEREBRUM: High signal intensity lesions scattered throughout the white matter on FLAIR imaging with d istribution suggesting micro-vascular ischemic changes. No evidence of hemorrhage, mass, or extraaxi al fluid collection. POSTERIOR FOSSA: No signal alteration. No hemorrhage. No edema, masses or mass effect. Internal joseph tory canals, cerebello-pontine angles, mastoids normal. DIFFUSION IMAGING: Negative for acute or sub-acute infarction. ORBITS: No masses. Globes normal. PARANASAL SINUSES: No fluid levels. Mucosa normal. OTHER: No other significant finding. IMPRESSION: No acute findings. EVIDENCE OF ACUTE STROKE: NO. TECHNICAL DOCUMENTATION: JOB ID: [id number] [employer]- All Rights Reserved Reading location - IP/workstation name: [email or web address]
--- NOTE | 2019-07-05 11:45 | PDOC CONSULTATION ---
Consultation Consult Date: 07/05/19 Provider Consulted: Balaji COLON Consult reason:: CKD stage IV. History of Present Illness Admission Date/PCP: 07/04/19 01:40 HIRAM GOMEZ MD History of Present Illness: SHAWN FORD JR is a 73 year old male History of hypertension, CKD stage IV with a base creatinine 2.5-3, bipolar disorder was admitted apparently with a history of possible seizures. Evaluations by the EMS crew and later in the ER revealed that the patient was hyperglycemic. Patient was not known to have diabetes until now and obviously this indicates that he has new onset diabetes mellitus. Is also confirmed by an A1c of 14+. Patient is well-known to me and he was last seen in my office couple of months ago and is creatinine was 2.7 Patient is not known to have any diabetic medications.Patient has his is at the bedside. He is doing well. He denies any complaints of any chest pain or shortness of breath or headaches or focal deficits. He states he remembers his right side of the body shaking but then apparently according to his he passed out for an indefinite period of time. Apparently there was no frothing or tongue biting. Labs and medications now shows that he is obviously having new onset diabetes. He has been begun on antidiabetic medications. His CT scan and MRI of his brains are negative for any acute space-occupying lesion. Past Medical History Cardiac Medical History: Reports: Hyperlipidemia, Hypertension-primary Renal/ Medical History: Reports: Chronic Kidney Disease Stage IV, Secondary Hyperparathyroidism Musculoskeltal Medical History: Reports: Arthritis - Gout Psychiatric Medical History: Reports: Depression Social History Smoking Status: Former Smoker Electronic Cigarette use?: No Last Time Smoked: 38 years ago Frequency of Alcohol Use: None Hx Recreational Drug Use: No Drugs: None Hx Prescription Drug Abuse: No - Advance Directive Resuscitation Status: Full Code Family History Parental Family History Reviewed: Yes - Negative for ESRD Children Family History Reviewed: No Sibling(s) Family History Reviewed.: No Medication/Allergy Home Medications: Allopurinol [Zyloprim 100 mg Tablet] 200 mg PO QAM 07/04/19 Aspirin [Adult Low Dose Aspirin EC] 81 mg PO DAILY 07/04/19 Atorvastatin Calcium [Lipitor 20 mg Tablet] 20 mg PO QHS 07/04/19 Furosemide [Lasix 20 mg Tablet] 20 mg PO QAM 07/04/19 Levothyroxine Sodium 50 mcg PO Q6AM 07/04/19 Olanzapine [Zyprexa 5 mg Tablet] 2.5 mg PO QPM 07/04/19 Sodium Bicarbonate [Sodium Bicarbonate 650 mg Tablet] 1,950 mg PO BID 07/04/19 Allergies/Adverse Reactions: No Known Allergies Allergy (Verified 09/09/16 05:10) Review of Systems Constitutional: ABSENT: anorexia, chills, fatigue, fever(s), headache(s) Eyes: ABSENT: visual disturbances Ears: ABSENT: hearing changes Nose, Mouth, and Throat: ABSENT: mouth pain, sore throat Cardiovascular: ABSENT: dyspnea on exertion, edema, orthropnea, palpitations Respiratory: ABSENT: dyspnea, hemoptysis Gastrointestinal: ABSENT: abdominal pain, bloating, coffee ground emesis, diarrhea, dysphagia, heartburn, hematemesis, nausea, vomiting Genitourinary: ABSENT: dysuria, hematuria Neurological: PRESENT: abnormal movements, tremor(s). ABSENT: focal weakness, frequent falls, lack of coordination Hematologic/Lymphatic: ABSENT: easy bruising, lymphadenopathy Physical Exam Vital Signs: Temp Pulse Resp BP Pulse Ox 98.7 F 77 18 98/68 L 99 07/05/19 09:09 07/05/19 09:09 07/05/19 09:09 07/05/19 09:09 07/05/19 09:09 Intake & Output 07/04/19 07/05/19 07/06/19 06:59 06:59 06:59 Intake Total 4825 748 Output Total 4555 Balance 270 748 Weight 109.1 kg Eye exam: PRESENT: EOMI, PERRLA. ABSENT: periorbital swelling Ear exam: PRESENT: normal external ear exam. ABSENT: bleeding Mouth exam: PRESENT: moist, neck supple Neck exam: ABSENT: lymphadenopathy, meningismus, tenderness, thyromegaly, tracheal deviation Respiratory exam: PRESENT: clear to auscultation haroldo. ABSENT: crackles Cardiovascular exam: PRESENT: +S1, +S2 GI/Abdominal exam: PRESENT: normal bowel sounds, soft. ABSENT: organomegaly, tenderness Extremities exam: ABSENT: pedal edema Neurological exam: PRESENT: alert, awake, oriented to person, oriented to place, CN II-XII grossly intact Skin exam: ABSENT: cyanosis, erythema, mottled, rash Results Laboratory Results: 07/05/19 04:27 07/05/19 04:27 07/04/19 07/05/19 07/05/19 11:18 04:27 04:27 WBC 8.6 RBC 3.88 L Hgb 11.1 L Hct 33.9 L MCV 87 MCH 28.6 MCHC 32.8 RDW 13.7 Plt Count 185 Seg Neutrophils % Not Reportable Sodium 146.0 H 148.7 H Potassium 4.0 3.6 Chloride 118 H 121 H Carbon Dioxide 19 L 19 L Anion Gap 9 9 BUN 20 16 Creatinine 2.51 H 2.50 H Est GFR ( Amer) 31 L 31 L Glucose 333 H 161 H Lactic Acid Calcium 8.3 L 8.4 Total Bilirubin 0.5 AST 52 Alkaline Phosphatase 95 Total Protein 6.5 Albumin 3.0 L 07/05/19 04:27 WBC RBC Hgb Hct MCV MCH MCHC RDW Plt Count Seg Neutrophils % Sodium Potassium Chloride Carbon Dioxide Anion Gap BUN Creatinine Est GFR ( Amer) Glucose Lactic Acid 1.2 Calcium Total Bilirubin AST Alkaline Phosphatase Total Protein Albumin 07/04/19 00:37 Creatine Kinase 268 H Impressions: Head CT 07/04/19 00:00 IMPRESSION: 1. There is no evidence of acute intracranial pathology. 2. Mild cerebral volume loss with findings consistent with mild chronic microangiopathy. Chest X-Ray 07/04/19 01:39 EST IMPRESSION: Negative chest copyright 2011 [employer]- All Rights Reserved Head MRI 07/05/19 00:00 IMPRESSION: No acute findings. EVIDENCE OF ACUTE STROKE: NO. Assessment & Plan - Diagnosis (1) CKD (chronic kidney disease), stage IV Plan: Patient is at baseline. No indications for renal replacements. Continue evaluations towards possible seizure-like activity and treatment of new onset diabetes. (2) HTN (hypertension) Qualifiers: Hypertension type: essential hypertension Qualified Code(s): I10 - Essential (primary) hypertension Is this a current diagnosis for this admission?: Yes Plan: Monitor. (3) New onset type 2 diabetes mellitus Is this a current diagnosis for this admission?: Yes Plan: As per Dr. Gomez. (4) Seizure-like activity Is this a current diagnosis for this admission?: Yes Plan: So far negative CT/MRI for any acute lesions. (5) Tremor of right hand Is this a current diagnosis for this admission?: Yes Plan: Status quo. (6) Hypothyroidism Qualifiers: Hypothyroidism type: unspecified Qualified Code(s): E03.9 - Hypothyroidism, unspecified Is this a current diagnosis for this admission?: Yes Plan: ? Chronic.
[2019-07-05] MEDS: OLANZAPINE 2.5 MG TABLET PO SCH (17:37)
[2019-07-05] MEDS: ATORVASTATIN CALCIUM 20 MG TABLET PO SCH (21:17)
[2019-07-05] MEDS ORDERED: INSULIN GLARGINE,HUM.REC.ANLOG 1,000 UNIT/10 ML VIAL SUBCUT SCH (22:00)
[2019-07-06] MEDS: NORMAL SALINE 1000 ML 1,000 ML IV PRN (05:00)
[2019-07-06] MEDS: LEVOTHYROXINE SODIUM 0.05 MG TABLET PO SCH (05:00)
[2019-07-06 05:41] LABS: HEMATOCRIT 35.4 % (37.9-51.0); HEMOGLOBIN 11.8 g/dL (13.5-17.0); MEAN CORPUSCULAR HGB CONC 33.2 g/dL (32.0-36.0); MEAN CORPUSCULAR VOLUME 87 fl (80-97); PLATELET COUNT 190 10^3/uL (150-450); RED BLOOD COUNT 4.06 10^6/uL (4.35-5.55); RED CELL DISTRIBUTION WIDTH 14.1 % (11.5-14.0); WHITE BLOOD COUNT 9.2 10^3/uL (4.0-10.5)
[2019-07-06 06:32] LABS: ANION GAP 9 (5-19); BLOOD UREA NITROGEN 21 mg/dL (7-20); CARBON DIOXIDE 18 mmol/L (22-30); CHLORIDE 121 mmol/L (98-107); GLUCOSE 168 mg/dL (75-110); POTASSIUM 4.1 mmol/L (3.6-5.0)
[2019-07-06 07:03] LABS: ABSOLUTE LYMPHOCYTES# (MANUAL) 5.5 10^3/uL (0.5-4.7); ABSOLUTE MONOCYTES # (MANUAL) 0.5 10^3/uL (0.1-1.4); BASOPHILS % (MANUAL) 0 % (0-2); EOSINOPHILS % (MANUAL) 3 % (0-6); LYMPHOCYTES % (MANUAL) 59 % (13-45); MONOCYTES % (MANUAL) 5 % (3-13); SEGMENTED NEUTROPHILS % (MAN) 32 % (42-78); TOTAL CELLS COUNTED 100
[2019-07-06 07:04] LABS: ANISOCYTOSIS SLIGHT; POLYCHROMASIA SLIGHT
[2019-07-06 07:05] LABS: PLATELET COMMENT ADEQUATE
[2019-07-06] MEDS ORDERED: NORMAL SALINE 1000 ML 1,000 ML IV PRN (07:39)
[2019-07-06] MEDS: INSULIN REG, HUMAN 100 UNIT/ML 3 ML VIAL (PYX) SUBCUT SCH ×4 (08:26→22:21)
[2019-07-06] MEDS: NATEGLINIDE 60 MG TABLET PO SCH ×2 (08:26→17:05)
[2019-07-06] MEDS: ALLOPURINOL 100 MG TABLET PO SCH (08:26)
[2019-07-06] MEDS: SODIUM BICARBONATE 650 MG TABLET PO SCH ×2 (09:05→17:05)
[2019-07-06] MEDS: ASPIRIN 81 MG TABLET, ENT COATED PO SCH (09:05)
--- NOTE | 2019-07-06 11:41 | PDOC PROGRESS REPORT ---
Subjective Progress Note for:: 07/06/19 Subjective:: Patient is currently doing well Patient's denied any chest pain to than any shortness of the breath Patient's blood sugar is coming down to 200 range Walk with the physical therapy yesterday Cussed with the family on the bedside no concern Reason For Visit: NEW ONSET DIABETES MELLITUS TYPE 2,LACTIC ACIDOSIS Physical Exam Vital Signs: Temp Pulse Resp BP Pulse Ox 97.8 F 72 18 119/77 99 07/06/19 07:44 07/06/19 07:44 07/06/19 07:44 07/06/19 07:44 07/06/19 07:44 Intake & Output 07/05/19 07/06/19 07/07/19 06:59 06:59 06:59 Intake Total 4825 4596 Output Total 4555 5130 Balance 270 -534 Weight 109.1 kg 112.1 kg General appearance: PRESENT: no acute distress, well-developed, well-nourished Head exam: PRESENT: atraumatic, normocephalic Eye exam: PRESENT: conjunctiva pink, EOMI, PERRLA. ABSENT: scleral icterus Ear exam: PRESENT: normal external ear exam Mouth exam: PRESENT: moist, tongue midline Neck exam: PRESENT: full ROM. ABSENT: carotid bruit, JVD, lymphadenopathy, t hyromegaly Respiratory exam: PRESENT: clear to auscultation haroldo Cardiovascular exam: PRESENT: RRR. ABSENT: diastolic murmur, rubs, systolic murmur Pulses: PRESENT: normal dorsalis pedis pul, +2 pedal pulses bilateral Vascular exam: PRESENT: normal capillary refill GI/Abdominal exam: PRESENT: normal bowel sounds, soft. ABSENT: distended, guarding, mass, organolmegaly, rebound, tenderness Rectal exam: PRESENT: deferred Musculoskeletal exam: PRESENT: ambulatory Neurological exam: PRESENT: alert, awake, oriented to person, oriented to place, oriented to time, oriented to situation, CN II-XII grossly intact. ABSENT: motor sensory deficit Psychiatric exam: PRESENT: appropriate affect, normal mood. ABSENT: homicidal ideation, suicidal ideation Skin exam: PRESENT: dry, intact, warm. ABSENT: cyanosis, rash Results Laboratory Results: 07/06/19 05:16 07/06/19 05:16 07/05/19 07/06/19 07/06/19 11:23 05:16 05:16 WBC 9.2 RBC 4.06 L Hgb 11.8 L Hct 35.4 L MCV 87 MCH 29.0 MCHC 33.2 RDW 14.1 H Plt Count 190 Seg Neutrophils % Not Reportable Sodium 148.3 H Potassium 4.1 Chloride 121 H Carbon Dioxide 18 L Anion Gap 9 BUN 21 H Creatinine 2.75 H Est GFR ( Amer) 28 L Glucose 168 H Calcium 9.0 PTH Intact 74.8 H 07/04/19 01:45 EST Clean Catch Midstream Urine Culture - Final Mixed Urogenital Claribel 07/04/19 00:37 Creatine Kinase 268 H Impressions: Head CT 07/04/19 00:00 IMPRESSION: 1. There is no evidence of acute intracranial pathology. 2. Mild cerebral volume loss with findings consistent with mild chronic microangiopathy. Chest X-Ray 07/04/19 01:39 EST IMPRESSION: Negative chest copyright 2011 [employer]- All Rights Reserved Head MRI 07/05/19 00:00 IMPRESSION: No acute findings. EVIDENCE OF ACUTE STROKE: NO. Assessment & Plan - Diagnosis (1) New onset type 2 diabetes mellitus Is this a current diagnosis for this admission?: Yes Plan: Increase the Lantus 15 units at night Diabetic education is already done Insulin teachingDone (2) CKD (chronic kidney disease) Qualifiers: Chronic kidney disease stage: stage 3 (moderate) Qualified Code(s): N18.3 - Chronic kidney disease, stage 3 (moderate) Is this a current diagnosis for this admission?: Yes Plan: Consult to Dr. Noble with the acute on chronic kidney failure continues to IV fluid hold the Lasix (3) Hypothyroidism Qualifiers: Hypothyroidism type: unspecified Qualified Code(s): E03.9 - Hypothyroidism, unspecified Is this a current diagnosis for this admission?: Yes (4) Lactic acidosis Is this a current diagnosis for this admission?: Yes Plan: Due to the diabetic ketoacidosis currently all resolved (5) Seizure-like activity Is this a current diagnosis for this admission?: Yes Plan: I do not think so is a seizures like activity due to the mostly hyperglycemia we will get the MRI of the head (6) Tremor of right hand Is this a current diagnosis for this admission?: Yes - Time Time Spent with patient: 15-24 minutes Level of Care: IMCU Medications reviewed and adjusted accordingly: Yes Anticipated discharge: Home with Homehealth Within: within 24 hours - Plan Summary Plan Summary: Continues to physical therapy adjust the Lantus dose tonight hopefully patient's discharge tomorrow morning discussed with the patient and the family on the bedside
[2019-07-06] MEDS: OLANZAPINE 2.5 MG TABLET PO SCH (17:05)
[2019-07-06] MEDS ORDERED: INSULIN GLARGINE,HUM.REC.ANLOG 1,000 UNIT/10 ML VIAL SUBCUT SCH ×2 (22:00)
[2019-07-06] MEDS: ATORVASTATIN CALCIUM 20 MG TABLET PO SCH (22:21)
[2019-07-07 05:10] LABS: ANION GAP 10 (5-19); BLOOD UREA NITROGEN 22 mg/dL (7-20); CARBON DIOXIDE 18 mmol/L (22-30); CHLORIDE 121 mmol/L (98-107); GLUCOSE 137 mg/dL (75-110); POTASSIUM 4.2 mmol/L (3.6-5.0)
[2019-07-07] MEDS: LEVOTHYROXINE SODIUM 0.05 MG TABLET PO SCH (05:29)
[2019-07-07] MEDS: NATEGLINIDE 60 MG TABLET PO SCH (08:31)
[2019-07-07] MEDS: ALLOPURINOL 100 MG TABLET PO SCH (08:31)
[2019-07-07] MEDS: INSULIN REG, HUMAN 100 UNIT/ML 3 ML VIAL (PYX) SUBCUT SCH ×2 (08:31→12:28)
[2019-07-07 08:48] VITALS: BP 132/76
[2019-07-07] MEDS: SODIUM BICARBONATE 650 MG TABLET PO SCH (10:11)
[2019-07-07] MEDS: ASPIRIN 81 MG TABLET, ENT COATED PO SCH (10:11)
--- NOTE | 2019-07-07 13:24 | PDOC DISCHARGE SUMMARY ---
Impression - Admit/DC Date/PCP Admission Date/Primary Care Provider: 07/04/19 01:40 HIRAM GOMEZ MD Discharge Date: 07/07/19 - Discharge Diagnosis (1) New onset type 2 diabetes mellitus Is this a current diagnosis for this admission?: Yes (2) CKD (chronic kidney disease) Is this a current diagnosis for this admission?: Yes (3) Hypothyroidism Is this a current diagnosis for this admission?: Yes (4) Lactic acidosis Is this a current diagnosis for this admission?: Yes (5) Seizure-like activity Is this a current diagnosis for this admission?: Yes (6) Tremor of right hand Is this a current diagnosis for this admission?: Yes - Additional Information Resuscitation Status: Full Code Discharge Diet: Diabetic Discharge Activity: Activity As Tolerated Referrals: CORA GOMEZ MD [Primary Care Provider] - 07/14/19 2:15 pm (f/u with dr noble f/u in offce 1 wk ) Balaji NOBLE MD [ACTIVE STAFF] - 07/14/19 10:30 am (seeing Jan) Prescriptions: Blood-Glucose Meter [Accu-Chek Guide Monitor System] 1 each ASDIR PRN #1 each PRN Reason: Blood Sugar Diagnostic [Accu-Chek Guide Test Strip] 1 each BID #200 strip Nateglinide [Starlix 60 mg Tablet] 60 mg PO BIDACBS #60 tablet Insulin Degludec [Tresiba] 15 unit SQ QHS #6 vial Home Medications: Allopurinol [Zyloprim 100 mg Tablet] 200 mg PO QAM 07/04/19 Aspirin [Adult Low Dose Aspirin EC] 81 mg PO DAILY 07/04/19 Atorvastatin Calcium [Lipitor 20 mg Tablet] 20 mg PO QHS 07/04/19 Furosemide [Lasix 20 mg Tablet] 20 mg PO QAM 07/04/19 Levothyroxine Sodium 50 mcg PO Q6AM 07/04/19 Olanzapine [Zyprexa 5 mg Tablet] 2.5 mg PO QPM 07/04/19 Sodium Bicarbonate [Sodium Bicarbonate 650 mg Tablet] 1,950 mg PO BID 07/04/19 Blood Sugar Diagnostic [Accu-Chek Guide Test Strip] 1 each BID #200 strip 07/07/19 Blood-Glucose Meter [Accu-Chek Guide Monitor System] 1 each ASDIR PRN #1 each 07/07/19 Insulin Degludec [Tresiba] 15 unit SQ QHS #6 vial 07/07/19 Nateglinide [Starlix 60 mg Tablet] 60 mg PO BIDACBS #60 tablet 07/07/19 History of Present Illiness History of Present Illness: SHAWN FORD JR is a 73 year old male Patient was admitting due to the hyperglycemia seizures like activity with the new onset of type 2 diabetes mellitus with the history of the end-stage renal disease Hospital Course Hospital Course: This is a 73-year-old male with a history of chronic kidney disease stage 4 And hypertension's hyperlipidemia multiple other comorbidity came to the emergency department with altered mental status patient's blood sugar about 600 and the seizures like activities Was put in IMCU start on the insulin drip and IV fluids Patient switched to subcu insulins and consult to Dr. Noble for kidney failure Patient MRI of the head was negative patient having no seizure activity most likely related to the hyperglycemic symptoms Patient had a physical therapy done Diabetic education is also done and insulin teaching was also done in the hospital with the patient and the Patient's blood sugar is coming down to 200 range patient was put on the Lantus 15 units at night discussed with the patient and the family about hypoglycemic symptoms also start on Starlix Patient's following office 1 week readjust insulin depends on the sugar level Physical Exam Vital Signs: Temp Pulse Resp BP Pulse Ox 97.3 F 78 18 132/76 H 94 07/07/19 11:43 07/07/19 11:43 07/07/19 11:43 07/07/19 08:47 07/07/19 11:43 Intake & Output 07/06/19 07/07/19 07/08/19 06:59 06:59 06:59 Intake Total 4534 3290 Output Total 9880 3784 Balance -036 -5853 Weight 112.1 kg 111.2 kg General appearance: PRESENT: no acute distress, well-developed, well-nourished Head exam: PRESENT: atraumatic, normocephalic Eye exam: PRESENT: conjunctiva pink, EOMI, PERRLA. ABSENT: scleral icterus Ear exam: PRESENT: normal external ear exam Mouth exam: PRESENT: moist, tongue midline Neck exam: ABSENT: carotid bruit, JVD, lymphadenopathy, thyromegaly Respiratory exam: PRESENT: clear to auscultation haroldo. ABSENT: rales, rhonchi, wheezes Cardiovascular exam: PRESENT: RRR. ABSENT: diastolic murmur, rubs, systolic murmur Pulses: PRESENT: normal dorsalis pedis pul Vascular exam: PRESENT: normal capillary refill GI/Abdominal exam: PRESENT: normal bowel sounds, soft. ABSENT: distended, guarding, mass, organolmegaly, rebound, tenderness Rectal exam: PRESENT: deferred Extremities exam: PRESENT: full ROM. ABSENT: calf tenderness, clubbing, pedal edema Neurological exam: PRESENT: alert, awake, oriented to person, oriented to place, oriented to time, oriented to situation, CN II-XII grossly intact. ABSENT: motor sensory deficit Psychiatric exam: PRESENT: appropriate affect, normal mood. ABSENT: homicidal ideation, suicidal ideation Skin exam: PRESENT: dry, intact, warm. ABSENT: cyanosis, rash Results Laboratory Results: WBC 9.2 10^3/uL (4.0-10.5) 07/06/19 05:16 RBC 4.06 10^6/uL (4.35-5.55) L 07/06/19 05:16 Hgb 11.8 g/dL (13.5-17.0) L 07/06/19 05:16 Hct 35.4 % (37.9-51.0) L 07/06/19 05:16 MCV 87 fl (80-97) 07/06/19 05:16 MCH 29.0 pg (27.0-33.4) 07/06/19 05:16 MCHC 33.2 g/dL (32.0-36.0) 07/06/19 05:16 RDW 14.1 % (11.5-14.0) H 07/06/19 05:16 Plt Count 190 10^3/uL (150-450) 07/06/19 05:16 Lymph % (Auto) Not Reportable 07/06/19 05:16 Kinney % (Auto) Not Reportable 07/06/19 05:16 Eos % (Auto) Not Reportable 07/06/19 05:16 Baso % (Auto) Not Reportable 07/06/19 05:16 Absolute Neuts (auto) Not Reportable 07/06/19 05:16 Absolute Lymphs (auto) Not Reportable 07/06/19 05:16 Absolute Monos (auto) Not Reportable 07/06/19 05:16 Absolute Eos (auto) Not Reportable 07/06/19 05:16 Absolute Basos (auto) Not Reportable 07/06/19 05:16 Total Counted 100 07/06/19 05:16 Seg Neutrophils % Not Reportable 07/06/19 05:16 Seg Neuts % (Manual) 32 % (42-78) L 07/06/19 05:16 Band Neutrophils % 4 % (3-5) 07/04/19 00:37 Lymphocytes % (Manual) 59 % (13-45) H 07/06/19 05:16 Atypical Lymphs % 1 % (0) 07/06/19 05:16 Monocytes % (Manual) 5 % (3-13) 07/06/19 05:16 Eosinophils % (Manual) 3 % (0-6) 07/06/19 05:16 Basophils % (Manual) 0 % (0-2) 07/06/19 05:16 Abs Neuts (Manual) 2.9 10^3/uL (1.7-8.2) 07/06/19 05:16 Abs Lymphs (Manual) 5.5 10^3/uL (0.5-4.7) H 07/06/19 05:16 Abs Monocytes (Manual) 0.5 10^3/uL (0.1-1.4) 07/06/19 05:16 Absolute Eos (Manual) 0.3 10^3/uL (0.0-0.6) 07/06/19 05:16 Abs Basophils (Manual) 0.0 10^3/uL (0.0-0.2) 07/06/19 05:16 Clumped Platelets PRESENT 07/05/19 04:27 Platelet Comment ADEQUATE 07/06/19 05:16 Polychromasia SLIGHT 07/06/19 05:16 Anisocytosis SLIGHT 07/06/19 05:16 RBC Morph Comment NORMO-CYTIC/CHROMIC 07/05/19 04:27 Sodium 148.9 mmol/L (137-145) H 07/07/19 04:26 Potassium 4.2 mmol/L (3.6-5.0) 07/07/19 04:26 Chloride 121 mmol/L (98-107) H 07/07/19 04:26 Carbon Dioxide 18 mmol/L (22-30) L 07/07/19 04:26 Anion Gap 10 (5-19) 07/07/19 04:26 BUN 22 mg/dL (7-20) H 07/07/19 04:26 Creatinine 2.60 mg/dL (0.52-1.25) H 07/07/19 04:26 Est GFR ( Amer) 29 (>60) L 07/07/19 04:26 Est GFR (MDRD) Non-Af 24 (>60) L 07/07/19 04:26 Glucose 137 mg/dL (75-110) H 07/07/19 04:26 POC Glucose 205 mg/dL (70-110) H 07/07/19 12:07 Hemoglobin A1c % > 14.0 % (4.7-6.0) H 07/05/19 04:27 Lactic Acid 1.2 mmol/L (0.7-2.1) 07/05/19 04:27 Calcium 9.0 mg/dL (8.4-10.2) 07/07/19 04:26 Total Bilirubin 0.5 mg/dL (0.2-1.3) 07/05/19 04:27 Direct Bilirubin 0.2 mg/dL (0.0-0.4) 07/05/19 04:27 Neonat Total Bilirubin Not Reportable 07/05/19 04:27 Neonat Direct Bilirubin Not Reportable 07/05/19 04:27 Neonat Indirect Bili Not Reportable 07/05/19 04:27 AST 52 U/L (17-59) 07/05/19 04:27 ALT 34 U/L (<50) 07/05/19 04:27 Alkaline Phosphatase 95 U/L (38-126) 07/05/19 04:27 Creatine Kinase 268 U/L (55-170) H 07/04/19 00:37 Total Protein 6.5 g/dL (6.3-8.2) 07/05/19 04:27 Albumin 3.0 g/dL (3.5-5.0) L 07/05/19 04:27 PTH Intact 74.8 pg/mL (10.0-65.0) H 07/05/19 11:23 Urine Color STRAW 07/04/19 01:45 EST Urine Appearance CLEAR 07/04/19 01:45 EST Urine pH 7.0 (5.0-9.0) 07/04/19 01:45 EST Ur Specific [place] 1.009 07/04/19 01:45 EST Urine Protein NEGATIVE mg/dL (NEGATIVE) 07/04/19 01:45 EST Urine Glucose (UA) >=500 mg/dL (NEGATIVE) H 07/04/19 01:45 EST Urine Ketones NEGATIVE mg/dL (NEGATIVE) 07/04/19 01:45 EST Urine Blood MODERATE (NEGATIVE) H 07/04/19 01:45 EST Urine Nitrite NEGATIVE (NEGATIVE) 07/04/19 01:45 EST Urine Bilirubin NEGATIVE (NEGATIVE) 07/04/19 01:45 EST Urine Urobilinogen NEGATIVE mg/dL (<2.0) 07/04/19 01:45 EST Ur Leukocyte Esterase NEGATIVE (NEGATIVE) 07/04/19 01:45 EST Urine RBC 1-5 /HPF 07/04/19 01:45 EST Urine WBC 1-5 /HPF 07/04/19 01:45 EST Ur Squamous Epith Cells RARE /HPF 07/04/19 01:45 EST Urine Bacteria TRACE /HPF 07/04/19 01:45 EST Urine Ascorbic Acid NEGATIVE (NEGATIVE) 07/04/19 01:45 EST Impressions: Head CT 07/04/19 00:00 IMPRESSION: 1. There is no evidence of acute intracranial pathology. 2. Mild cerebral volume loss with findings consistent with mild chronic microangiopathy. Chest X-Ray 07/04/19 01:39 EST IMPRESSION: Negative chest copyright 2011 [employer]- All Rights Reserved Head MRI 07/05/19 00:00 IMPRESSION: No acute findings. EVIDENCE OF ACUTE STROKE: NO. Plan Time Spent: Greater than 30 Minutes - Follow in office 1 week recheck the blood sugar log readjust the medications Stroke Is this a Stroke Patient?: No Acute Heart Failure - Is this a Heart Failure Patient?: No
--- NOTE | 2019-07-20 11:25 | Progress Note ---
Provider Note Provider Note: Patient is not qualified for the DKAPatient's chest hyperglycemia and acidosis from the chronic kidney disease with hyperglycemia combinations but not DKA
== END 2019-07-07 13:05 | disposition home health service (06) | DRG 638 ==
LOC: ER 00:29 → EH 01:40 → 3W 03:26
PROVIDERS: ADMIT Family Medicine; ATTEND Family Medicine
DX: E11.65 Type 2 diabetes mellitus with hyperglycemia (principal); N18.4 Chronic kidney disease, stage 4 (severe); N25.81 Secondary hyperparathyroidism of renal origin; E11.22 Type 2 diabetes mellitus with diabetic chronic kidney disease; I12.9 Hypertensive chronic kidney disease with stage 1 through stage 4 chronic kidney disease, or unspecified chronic kidney disease; E78.5 Hyperlipidemia, unspecified; M19.90 Unspecified osteoarthritis, unspecified site; Z79.4 Long term (current) use of insulin; F31.9 Bipolar disorder, unspecified; R25.1 Tremor, unspecified; E03.9 Hypothyroidism, unspecified; M1A.9XX0 Chronic gout, unspecified, without tophus (tophi); Z79.899 Other long term (current) drug therapy; Z87.891 Personal history of nicotine dependence; Z79.82 Long term (current) use of aspirin; R56.9 Unspecified convulsions
CPT/HCPCS: 36415; 70450; 70551; 71045; 80048; 80053; 80307; 81001; 82550; 82803; 82962; 83036; 83605; 83970; 85025; 87040; 87086; 99291; J1815; J3490; J7030

== ENCOUNTER 2020-08-13 15:49 | Emergency (ER) | payer MEDICARE ==
[2020-08-13 16:52] LABS: ABSOLUTE BASOPHILS # (AUTO) 0.1 10^3/uL (0.0-0.2); ABSOLUTE EOSINOPHILS # (AUTO) 0.1 10^3/uL (0.0-0.6); ABSOLUTE LYMPHOCYTES (AUTO) 1.9 10^3/uL (0.5-4.7); ABSOLUTE MONOCYTES (AUTO) 0.7 10^3/uL (0.1-1.4); ABSOLUTE NEUT (AUTO) 4.4 10^3/uL (1.7-8.2); BASOPHILS % (AUTO) 0.7 % (0-2); EOSINOPHILS % (AUTO) 1.2 % (0-6); HEMATOCRIT 35.5 % (37.9-51.0); HEMOGLOBIN 11.6 g/dL (13.5-17.0); LYMPHOCYTES % (AUTO) 27.2 % (13-45); MEAN CORPUSCULAR HEMOGLOBIN 28.3 pg (27.0-33.4); MEAN CORPUSCULAR HGB CONC 32.6 g/dL (32.0-36.0); MEAN CORPUSCULAR VOLUME 87 fl (80-97); MONOCYTES % (AUTO) 9.3 % (3-13); PLATELET COUNT 184 10^3/uL (150-450); RED BLOOD COUNT 4.09 10^6/uL (4.35-5.55); RED CELL DISTRIBUTION WIDTH 14.4 % (11.5-14.0); SEGMENTED NEUTROPHILS % (AUTO) 61.6 % (42-78); TOTAL CELLS COUNTED % (AUTO) 100 %; WHITE BLOOD COUNT 7.1 10^3/uL (4.0-10.5)
[2020-08-13 16:53] LABS: APPEARANCE,URINE CLEAR; BILIRUBIN,URINE NEGATIVE (NEGATIVE); COLOR,URINE STRAW; GLUCOSE, URINE NEGATIVE (NEGATIVE); KETONES,URINE NEGATIVE (NEGATIVE); LEUKOCYTE ESTERASE,URINE NEGATIVE (NEGATIVE); NITRITE,URINE NEGATIVE (NEGATIVE); PROTEIN,URINE NEGATIVE (NEGATIVE); URINE SPECIFIC GRAVITY 1.004; UROBILINOGEN,URINE NEGATIVE mg/dL (<2.0)
[2020-08-13 16:57] LABS: INTERNATIONAL RATION (INR) 0.97; PROTHROMBIN TIME 13.1 SEC (11.4-15.4)
[2020-08-13 17:13] LABS: ALBUMIN 3.8 g/dL (3.5-5.0); ALKALINE PHOSPHATASE 69 U/L (38-126); ANION GAP 10 (5-19); ASPARTATE AMINO TRANSFERASE 38 U/L (17-59); BILIRUBIN,DIRECT 0.1 mg/dL (0.0-0.4); BILIRUBIN,TOTAL 0.4 mg/dL (0.2-1.3); BLOOD UREA NITROGEN 28 mg/dL (7-20); CALCIUM 8.9 mg/dL (8.4-10.2); CARBON DIOXIDE 20 mmol/L (22-30); CHLORIDE 108 mmol/L (98-107); GLUCOSE 136 mg/dL (75-110); POTASSIUM 4.2 mmol/L (3.6-5.0); TOTAL PROTEIN 7.4 g/dL (6.3-8.2)
--- NOTE | 2020-08-13 19:35 | ER Document Report ---
ED General - General TRAVEL OUTSIDE OF THE [place] IN LAST 30 DAYS: No <LORA SRINIVASAN - Last Filed: 08/13/20 20:17> <TAMIKA LOPEZ - Last Filed: 08/14/20 03:45> - General Chief Complaint: General Weakness Stated Complaint: LEG/FOOT PAIN Time Seen by Provider: 08/13/20 18:31 Primary Care Provider: CORA GOMEZ MD [Primary Care Provider] - Follow up in 1 week Notes: Patient is a 74-year-old male who presents the emergency department with the chief complaint of bilateral feet pain and swelling. reports that every time the patient gets washed up he always complains about feet pain. Patient has history of gout. reports that the patient has had a cough and he went to his primary care provider's office to be tested for COVID-19, but he was not tested and was told to return on Friday, which is tomorrow. Denies any fever. would like patient to be tested for COVID-19. (CATINA SRINIVASANEULALIO Pierre) - Related Data Allergies/Adverse Reactions: No Known Allergies Allergy (Verified 08/13/20 16:17) Past Medical History - Social History Smoking Status: Former Smoker Chew tobacco use (# tins/day): No Frequency of alcohol use: None Drug Abuse: None Family History: Reviewed & Not Pertinent Patient has homicidal ideation: No - Past Medical History Cardiac Medical History: Reports: Hx Hypercholesterolemia, Hx Hypertension Renal/ Medical History: Reports: Hx Renal Insufficiency Musculoskeletal Medical History: Reports Hx Arthritis - Gout Psychiatric Medical History: Reports: Hx Depression Past Surgical History: Reports: Hx Thyroid Surgery - partial per patient - Immunizations Hx Diphtheria, Pertussis, Tetanus Vaccination: Yes Hx Pneumococcal Vaccination: 09/01/16 <LORA SRINIVASAN - Last Filed: 08/13/20 20:17> Review of Systems <LORA SRINIVASAN - Last Filed: 08/13/20 20:17> - Review of Systems Notes: REVIEW OF SYSTEMS: CONSTITUTIONAL : Denies recent illness. Denies recent unintentional weight loss. Denies fever, chills, or sweats. EENT: Denies eye, ear, throat, or mouth pain, discharge, or symptoms. Denies nasal or sinus congestion. CARDIOVASCULAR: Denies chest pain. RESPIRATORY: See HPI. GASTROINTESTINAL: Denies nausea, vomiting, and diarrhea. Denies abdominal pain. Denies constipation. GENITOURINARY: Denies difficulty urinating, burning, blood in urine, urgency or frequency. MUSCULOSKELETAL: Denies neck and back pain. See HPI. SKIN: Denies rash, itchiness, or lesions HEMATOLOGIC : Denies easy bruising or bleeding. LYMPHATIC: Denies swollen, painful, enlarged glands. NEUROLOGICAL: Denies no numbness or tingling denies weakness. Denies headache. Denies altered mental status. Denies alteration in speech. PSYCHIATRIC: Denies stress, anxiety, alteration in sleep patterns, or depression. All other systems reviewed and negative. (CRAIGLORA M) Physical Exam <LORA SRINIVASAN - Last Filed: 08/13/20 20:17> - Vital signs Vitals: Temp Pulse Resp BP Pulse Ox 99.9 F 112 H 16 127/72 H 95 08/13/20 16:00 08/13/20 16:00 08/13/20 16:00 08/13/20 16:00 08/13/20 16:00 - Notes Notes: PHYSICAL EXAMINATION: GENERAL: Appears well, healthy, well-nourished, no acute distress. HEAD: Normocephalic, atraumatic. EYES: PERRL, conjunctiva normal, all extraocular movements intact, sclera nonicteric ENT: Moist mucous membranes. NECK: Supple, no noticeable swelling, redness, rash. Normal range of motion. LUNGS: Equal breath sounds bilaterally and clear to auscultation. No wheezes rales or rhonchi. CARDIOVASCULAR: S1-S2, regular rate, regular rhythm. Radial pulses 2+, normal. ABDOMEN: Normoactive bowel sounds. Soft, nontender, no guarding, no rebound tenderness, and no masses palpated. EXTREMITIES: Normal strength and range of motion, no pitting or edema. No cyanosis. NEUROLOGICAL: Moves all extremities upon command. Strength 5/5 in all extremities. PSYCH: Normal mood, normal affect. SKIN: Warm, dry. No rash, lesions, ulcerations noted. Normal skin turgor. (CRAIGLORA Pierre) Course - Laboratory Results Result Diagrams: 08/13/20 16:34 08/13/20 16:34 <LORA SRINIVASAN - Last Filed: 08/13/20 20:17> - Laboratory Results Result Diagrams: 08/13/20 16:34 08/13/20 16:34 Critical Laboratory Results Reviewed: No Critical Results - Radiology Results Critical Radiology Results Reviewed: No Critical Results <TAMIKA LOPEZ - Last Filed: 08/14/20 03:45> - Re-evaluation Re-evalutation: 08/13/20 20:15 The patient was evaluated during the global COVID-19 pandemic and that diagnosis was suspected/considered upon their initial presentation. Their evaluation, treatment and testing was consistent with current guidelines for patients who present with complaints or symptoms that may be related to COVID-19. Hematology shows a hemoglobin of 11.6, which is normal for this patient. Hematocrit is 35.5. Thank you coagulation studies are unremarkable. Chemistries show a CO2 of 20, which is actually better than when the patient was discharged from the hospital last year. Lactic acid ordered in triage is normal. Creatinine is 3. 07, which is consistent with patient's chronic kidney disease. We will add on a uric acid level. We will also add on a BNP and chest x-ray. Report given to SHAHLA Brownlee. He will follow-up with the patient's labs and chest x-ray. (LORA SRINIVASAN) - Vital Signs Vital signs: Temp Pulse Resp BP Pulse Ox 99.9 F 112 H 16 119/89 H 95 08/13/20 16:00 08/13/20 16:00 08/13/20 22:14 08/13/20 22:14 08/13/20 22:14 - Laboratory Results Laboratory Results Interpreted: 08/13/20 08/13/20 08/13/20 16:34 16:34 16:34 RBC 4.09 L Hgb 11.6 L Hct 35.5 L RDW 14.4 H Chloride 108 H Carbon Dioxide 20 L BUN 28 H Creatinine 3.07 H Est GFR ( Amer) 24 L Est GFR (MDRD) Non-Af 20 L Glucose 136 H Urine Blood SMALL H Discharge <LORA SRINIVASAN - Last Filed: 08/13/20 20:17> <TAMIKA LOPEZ - Last Filed: 08/14/20 03:45> - Discharge Clinical Impression: Swelling of both lower extremities, Pain in both feet, Person under inv estigation for COVID-19 Condition: Stable Disposition: HOME, SELF-CARE Additional Instructions: As a person under investigation for COVID-19, the [place] Department of Health and Human Services (division on public health) advises you to adhere to the following guidance until your test results are reported to you. If your test result is positive, you will receive additional information from your provider and your local health department at that time. Remain at home until you are cleared by the health provider or public health authorities. Keep a log of visitors to your home, notify any visitors to your home of your isolation status. If you plan to move to a new address or leave the [facility], notify the local health department in your County. Call your Doctor or seek care if you have an urgent medical need. Before seeking medical care, call him to get instructions from the provider before arriving at the medical office, clinic, or hospital. Notify them that you are being tested for the virus (COVID-19) so that arrangements can be made, as necessary, to prevent transmission to others in the healthcare setting. Next, notify the local health department in your county. Referrals: CORA GOMEZ MD [Primary Care Provider] - Follow up in 1 week
[2020-08-13 21:40] LABS: A TYPE INFLUENZA AG NEGATIVE (NEGATIVE); B INFLUENZA AG NEGATIVE (NEGATIVE)
--- NOTE | 2020-08-13 22:37 | RADIOLOGY REPORT (SQ) ---
EXAM DESCRIPTION: XR CHEST 1 VIEW COMPLETED DATE/TME: 08/13/2020 20:23 CLINICAL HISTORY: 74 years, Male, cough COMPARISON: July 04, 2019 NUMBER OF VIEWS: 1 TECHNIQUE: AP portable upright view of the chest was obtained at 8:07 PM. LIMITATIONS: None. FINDINGS: The heart size is within normal limits. Lungs appear clear. There is no evidence of pleural effusion or pneumothorax. No definite acute bony abnormality is seen. IMPRESSION: No acute abnormality as above. copyright 2010 [employer]- All Rights Reserved
[2020-08-13 22:50] VITALS: BP 119/89
--- NOTE | 2020-08-14 00:23 | EKG REPORT ---
SEVERITY:- OTHERWISE NORMAL ECG - SINUS RHYTHM LEFT AXIS DEVIATION : Confirmed by: Nicole Murillo 14-Aug-2020 00:22:17
== END 2020-08-13 22:58 | disposition home or self-care (01) ==
LOC: ER 15:49
DX: U07.1 COVID-19 (principal); M79.671 Pain in right foot; M79.672 Pain in left foot; M79.89 Other specified soft tissue disorders; R05 Cough; I12.9 Hypertensive chronic kidney disease with stage 1 through stage 4 chronic kidney disease, or unspecified chronic kidney disease; N18.9 Chronic kidney disease, unspecified; Z87.891 Personal history of nicotine dependence
CPT/HCPCS: 93005; 99285; 36415; 83605; 84550; 85025; 85610; 80053; 81001; 87804; 83880; 71045; 93010; U0003; C9803; 87635